=== PATIENT | male | born 1965 | race Two or more races ===

== ENCOUNTER 2016-11-24 08:30 | Inpatient (IN) | payer OTHER ==
[~2016-11-24] VITALS: Ht 170.2 cm; Wt 84.4 kg
[2016-11-24] VITALS (8 sets, daily range): BP systolic 107–123; BP diastolic 69–77
[2016-11-24] MEDS ORDERED: MORPHINE SULFATE 10 MG/ML VIAL. ONE ×2 (08:33→08:46)
[2016-11-24] MEDS ORDERED: CEFAZOLIN 1GM IVPB FOR OMNI 50 ML IV ONE ×2 (08:45→09:00)
[2016-11-24] MEDS ORDERED: MORPHINE SULFATE 4 MG/ML DISP.SYRIN. IV/SQ PRN (09:00)
[2016-11-24] MEDS ORDERED: MORPHINE SULFATE 10 MG/ML VIAL. IV ONE ×3 (09:00→09:30)
[2016-11-24 09:03] LABS: BASO # 0.1 x10^3/uL (0.0-0.2); BASO % 1 % (0-3); EOS % 4 % (0-3); HEMATOCRIT 42.3 % (39.0-53.0); HEMOGLOBIN 14.5 g/dL (13.0-17.5); LYMPH # 3.5 x10^3/uL (1.0-4.8); LYMPH % 32 % (24-48); MEAN CORPUSCULAR HEMOGLOBIN 30 pg (25-35); MEAN CORPUSCULAR HGB CONC 34 g/dL (31-37); MEAN CORPUSCULAR VOLUME 88 fL (79-100); MONO % 7 % (0-9); NEUT % 57 % (31-73); PLATELET COUNT 184 x10^3/uL (140-400); RED BLOOD COUNT 4.83 x10^6/uL (4.30-5.70); RED CELL DISTRIBUTION WIDTH 12.6 % (11.5-14.5); WHITE BLOOD COUNT 11.1 x10^3/uL (4.0-11.0)
[2016-11-24] MEDS ORDERED: LIDOCAINE 1% / SOD BICARB 8.4% 20 ML VIAL. IJ ONE (09:04)
[2016-11-24 09:08] LABS: CALCIUM 9.5 mg/dL (8.5-10.1); GFR 79.1; POTASSIUM 3.4 mmol/L (3.5-5.1)
--- NOTE | 2016-11-24 09:12 | RAD ---
INDICATION: crush injury COMPARISON: None IMPRESSION: Left lower le views obtained. There is a comminuted fracture of the left proximal tibia with displacement. Degenerative changes of the knee.
[2016-11-24 09:13] LABS: ALBUMIN 3.5 g/dL (3.4-5.0); ALBUMIN/GLOBULIN RATIO 0.8 (1.0-1.7); TOTAL BILIRUBIN 0.4 mg/dL (0.2-1.0); TOTAL PROTEIN 7.7 g/dL (6.4-8.2)
[2016-11-24 09:14] LABS: PROTHROMBIN TIME PATIENT 12.2 SEC (11.7-14.0)
[2016-11-24 09:27] LABS: BILIRUBIN,URINE NEGATIVE (NEG); GLUCOSE,URINE NEGATIVE (NEG); NITRITE,URINE NEGATIVE (NEG); PH,URINE 7.5; PROTEIN,URINE NEGATIVE (NEG-TRACE); UROBILINOGEN,URINE 0.2 mg/dL (0.2 mg/dL)
[2016-11-24 09:34] LABS: BARBITURATES NEG (NEG); BENZODIAZEPINES NEG (NEG); CANNABINOIDS NEG (NEG); COCAINE NEG (NEG); METHADONE NEG (NEG); OPIATES POS (NEG); PHENCYCLIDINE NEG (NEG)
[2016-11-24 09:36] LABS: ETHANOL, URINE NEG (NEG)
[2016-11-24] MEDS: IV RINGERS,LACTATED 1000ML 1,000 ML IV SCH ×2 (09:38→14:30)
[2016-11-24] MEDS ORDERED: HYDROMORPHONE 2 MG/ML VIAL. IV PRN (09:45)
[2016-11-24] MEDS ORDERED: PROCHLORPERAZINE 10 MG/2 ML VIAL. IV PRN (09:45)
[2016-11-24] MEDS ORDERED: MORPHINE SULFATE 2 MG/ML DISP.SYRIN. IV PRN ×2 (09:45→13:30)
[2016-11-24] MEDS ORDERED: FENTANYL PF 100 MCG/2 ML VIAL. IV PRN ×2 (09:45→13:30)
[2016-11-24] MEDS ORDERED: LIDOCAINE 1% 1 ML SYRINGE. ID PRN (09:45)
[2016-11-24] MEDS ORDERED: ONDANSETRON PF 4 MG/2 ML VIAL. IV PRN ×2 (09:45→13:30)
[2016-11-24] MEDS ORDERED: BUPIVACAINE-EPI 0.25%-1:200000 50 ML VIAL. ONE (09:50)
[2016-11-24 09:53] LABS: BACTERIA,URINE FEW /HPF (0-FEW); SQUAMOUS EPITHELIAL CELL,UR OCC /LPF
[2016-11-24] MEDS ORDERED: PROPOFOL 20 ML IV ONE (09:56)
[2016-11-24] MEDS ORDERED: ONDANSETRON PF 4 MG/2 ML VIAL. ONE (09:57)
[2016-11-24] MEDS ORDERED: DESFLURANE > 120 MINUTES IH ONE (09:57)
[2016-11-24] MEDS ORDERED: LIDOCAINE 2% 100 MG/5 ML DISP.SYRIN. ONE (09:57)
[2016-11-24] MEDS ORDERED: DEXAMETHASONE SOD PHOS 20 MG/5 ML VIAL. ONE (09:57)
[2016-11-24] MEDS ORDERED: SUCCINYLCHOLINE 200 MG/10 ML VIAL. ONE (09:57)
[2016-11-24] MEDS ORDERED: MIDAZOLAM HCL 2 MG/2 ML VIAL. ONE (09:59)
[2016-11-24] MEDS ORDERED: FENTANYL PF 100 MCG/2 ML VIAL. ONE ×2 (10:00→12:18)
--- NOTE | 2016-11-24 10:34 | PHYS DOC ---
Adult General Chief Complaint Chief Complaint: TRAUMA ACTIVATION HPI HPI Patient is a 51 year old male brought by ambulance from work after an injury. The patient was standing next to a concrete foundation when a rack loader backed into him, pinning his left leg between the rack loader and the concrete foundation. He was brought by ambulance. He was wearing multiple layers of clothes and working out in the cold when this occurred. He is healthy without chronic medical problems. No known allergies. Pain is 10 out of 10. Review of Systems Review of Systems Constitutional: Denies fever or chills [] Eyes: Denies change in visual acuity, redness, or eye pain [] HENT: Denies nasal congestion or sore throat [] Respiratory: Denies cough or shortness of breath [] Cardiovascular: Denies chest pain GI: Denies abdominal pain, nausea, vomiting, bloody stools or diarrhea [] : Denies dysuria or hematuria [] Musculoskeletal: As in history of present illness Integument: Denies rash or skin lesions [] Neurologic: Denies headache, focal weakness or sensory changes [] Current Medications Current Medications Current Medications Medications (Trade) Dose Ordered Sig/Ruby Start Time Stop Time Status Last Admin Dose Admin Bupivacaine HCl/ Epinephrine Bitart 50 ml 50 ml STK-MED ONCE 11/24/16 09:50 11/24/16 09:51 DC 11/24/16 10:32 50 ML Cefazolin Sodium (Ancef 1gm Ivpb For Omni) 50 ml @ 100 mls/hr 1X ONCE 11/24/16 09:00 11/24/16 09:37 DC 11/24/16 10:23 100 MLS/HR Desflurane (Suprane) 90 ml STK-MED ONCE 11/24/16 09:57 11/24/16 09:58 DC Dexamethasone Sodium Phosphate (Decadron) 20 mg STK-MED ONCE 11/24/16 09:57 11/24/16 09:58 DC Fentanyl Citrate (Fentanyl 2ml Vial) 100 mcg STK-MED ONCE 11/24/16 10:00 11/24/16 10:01 DC Hydromorphone HCl (Dilaudid) 0.5 mg PRN Q10MIN PRN 11/24/16 09:45 11/25/16 09:44 Lactated Ringer's (Iv Lactated Ringers) 1,000 ml @ 30 mls/hr Q24H 11/24/16 09:38 11/24/16 21:37 11/24/16 14:30 30 MLS/HR Lidocaine HCl 100 mg STK-MED ONCE 11/24/16 09:57 11/24/16 09:58 DC Lidocaine/Sodium Bicarbonate (Buffered Lidocaine 1%) 20 ml STK-MED ONCE 11/24/16 09:04 11/24/16 09:05 DC Midazolam HCl (Versed) 2 mg STK-MED ONCE 11/24/16 09:59 11/24/16 10:00 DC Morphine Sulfate 1 mg 1 mg PRN Q10MIN PRN 11/24/16 09:45 11/25/16 09:44 Morphine Sulfate 10 mg 10 mg 1X ONCE 11/24/16 09:00 11/24/16 09:37 DC Ondansetron HCl (Zofran) 4 mg STK-MED ONCE 11/24/16 09:57 11/24/16 09:58 DC Prochlorperazine Edisylate (Compazine) 5 mg PACU PRN PRN 11/24/16 09:45 11/25/16 09:44 Propofol (Diprivan) 20 ml @ As Directed STK-MED ONCE 11/24/16 09:56 11/24/16 09:57 DC Succinylcholine Chloride (Anectine) 200 mg STK-MED ONCE 11/24/16 09:57 11/24/16 09:58 DC Allergies Allergies Physical Exam Physical Exam Constitutional: Well developed, well nourished, alert, mentating normally, obvious left below the knee injury, vital signs stable HENT: Normocephalic, atraumatic, bilateral external ears normal, oropharynx moist, no oral exudates, nose normal. [] Eyes: conjunctiva normal, no discharge. [] Neck: Normal range of motion, no stridor. [] Cardiovascular:Heart rate regular rhythm, no murmur [] Lungs & Thorax: Bilateral breath sounds clear to auscultation [] Abdomen: Bowel sounds normal, soft, no tenderness, no masses, no pulsatile masses. [] Skin: Warm, dry, no erythema, no rash. [] Extremities: Upper extremities not injured. Right lower extremity has about a 1 cm laceration without underlying bony tenderness or deformity over the middle of the anterior lower leg. Left lower extremity has an obvious deformity, obvious crush injury, approximate 2 cm puncture type open wound that is bleeding slowly over the anterior aspect of the leg below the knee. Foot is warm with good color and good DP pulse. Neurologic: Alert and oriented X 3, normal motor function, normal sensory function, no focal deficits noted. [] Current Patient Data Vital Signs Vital Signs Date Time Temp Pulse Resp B/P Pulse Ox O2 Delivery O2 Flow Rate FiO2 11/24/16 10:08 98.4 79 15 141/86 97 Nasal Cannula 2 98.4 Lab Values Laboratory Tests Test 11/24/16 08:40 11/24/16 09:15 White Blood Count 11.1x10^3/uL (4.0-11.0) H Red Blood Count 4.83x10^6/uL (4.30-5.70) Hemoglobin 14.5g/dL (13.0-17.5) Hematocrit 42.3% (39.0-53.0) Mean Corpuscular Volume 88fL (79-100) Mean Corpuscular Hemoglobin 30pg (25-35) Mean Corpuscular Hemoglobin Concent 34g/dL (31-37) Red Cell Distribution Width 12.6% (11.5-14.5) Platelet Count 184x10^3/uL (140-400) Neutrophils (%) (Auto) 57% (31-73) Lymphocytes (%) (Auto) 32% (24-48) Monocytes (%) (Auto) 7% (0-9) Eosinophils (%) (Auto) 4% (0-3) H Basophils (%) (Auto) 1% (0-3) Neutrophils # (Auto) 6.3x10^3uL (1.8-7.7) Lymphocytes # (Auto) 3.5x10^3/uL (1.0-4.8) Monocytes # (Auto) 0.8x10^3/uL (0.0-1.1) Eosinophils # (Auto) 0.5x10^3/uL (0.0-0.7) Basophils # (Auto) 0.1x10^3/uL (0.0-0.2) Prothrombin Time 12.2SEC (11.7-14.0) Prothrombin Time INR 1.0 (0.8-1.1) PTT 27SEC (24-38) Sodium Level 141mmol/L (136-145) Potassium Level 3.4mmol/L (3.5-5.1) L Chloride Level 103mmol/L (98-107) Carbon Dioxide Level 24mmol/L (21-32) Anion Gap 14 (6-14) Blood Urea Nitrogen 19mg/dL (8-26) Creatinine 1.0mg/dL (0.7-1.3) Estimated GFR (Cockcroft-Gault) 79.1 BUN/Creatinine Ratio 19 (6-20) Glucose Level 169mg/dL (70-99) H Calcium Level 9.5mg/dL (8.5-10.1) Total Bilirubin 0.4mg/dL (0.2-1.0) Aspartate Amino Transferase (AST) 19U/L (15-37) Alanine Aminotransferase (ALT) 16U/L (16-63) Alkaline Phosphatase 79U/L (46-116) Total Protein 7.7g/dL (6.4-8.2) Albumin 3.5g/dL (3.4-5.0) Albumin/Globulin Ratio 0.8 (1.0-1.7) L Ethyl Alcohol Level < 10mg/dL (0-10) Urine Collection Type Unknown Urine Color Yellow Urine Clarity Cloudy Urine pH 7.5 Urine Specific [place] 1.015 Urine Protein Negativemg/dL (NEG-TRACE) Urine Glucose (UA) Negativemg/dL (NEG) Urine Ketones (Stick) Tracemg/dL (NEG) Urine Blood Negative (NEG) Urine Nitrite Negative (NEG) Urine Bilirubin Negative (NEG) Urine Urobilinogen Dipstick 0.2mg/dL (0.2 mg/dL) Urine Leukocyte Esterase Negative (NEG) Urine RBC 1-2/HPF (0-2) Urine WBC 1-4/HPF (0-4) Urine Squamous Epithelial Cells Occ/LPF Urine Amorphous Sediment Present/HPF Urine Bacteria Few/HPF (0-FEW) Urine Mucus Mod/LPF Urine Opiates Screen Pos (NEG) Urine Methadone Screen Neg (NEG) Urine Barbiturates Neg (NEG) Urine Phencyclidine Screen Neg (NEG) Urine Amphetamine/Methamphetamine Neg (NEG) Urine Benzodiazepines Screen Neg (NEG) Urine Cocaine Screen Neg (NEG) Urine Cannabinoids Screen Neg (NEG) Urine Ethyl Alcohol Neg (NEG) Laboratory Tests 11/24/16 08:40 Laboratory Tests 11/24/16 08:40 EKG EKG [] Radiology/Procedures Radiology/Procedures X-rays of the left tib-fib reviewed by me, comminuted fracture of the tibia. [] Procedure: Left long leg splint by me 4 x 4's were placed and wrapped with Kerlix over the open wound below the left knee. The left leg was wrapped with soft roll. A 5 inch OCL was used to place a posterior long-leg splint for stabilization and wrapped with an Luis wrap. The patient was medicated with IV morphine for the procedure and tolerated the procedure well. Postprocedure neurovascular intact and alignment good. Course & Med Decision Making Course & Med Decision Making Pertinent Labs and Imaging studies reviewed. (See chart for details) This patient was a trauma team activation for open long bone fracture with concern for vascular compromise. This patient is [place]-speaking. Bedside translation was provided by a friend who came in with him and speaks both languages well as well as a ED RN who speaks both languages well. 51-year-old male presents after a crush injury with obvious fracture and deformity of his left leg below the knee. Patient was given a tetanus shot and IV Ancef. He had had prehospital pain medications but arrived with 10 out of 10 pain, he was given multiple IV doses of morphine until his pain was well controlled in the emergency department. He was assessed without evidence of other serious injury. After his pain was stabilized, a long leg splint was placed by me with assistance from nursing staff. See procedure note. I discussed the case with Dr. Trujillo, orthopedics, who is on his way to the hospital to take the patient to the operating room. The patient was informed of this plan and is agreeable. Discussed the case with Dr. Perry, special care hospital medicine, who will admit the patient. I wrote bridge orders. [] Dragon Disclaimer Dragon Disclaimer This electronic medical record was generated, in whole or in part, using a voice recognition dictation system. Departure Departure Impression: Primary Impression: Open fracture of left tibia Disposition: ADMITTED INPATIENT Admitting Physician: Other Condition: STABLE Referrals: NO PCP (PCP) CARLO MOON MD Nov 24, 2016 10:34
[2016-11-24] MEDS ORDERED: ESMOLOL 100 MG/10 ML VIAL. IV ONE (10:58)
[2016-11-24] MEDS: FENTANYL PF 100 MCG/2 ML VIAL. IV PRN ×2 (13:27→14:49)
[2016-11-24] MEDS ORDERED: HYDROCODONE/APAP 7.5/325MG TABLET. PO PRN (13:30)
[2016-11-24] MEDS ORDERED: OXYCODONE IR 5 MG TABLET. PO PRN (13:30)
[2016-11-24] MEDS ORDERED: POLYETHYLENE GLYCOL 3350 17 GM PACKET. PO PRN (13:30)
[2016-11-24] MEDS ORDERED: DEXTROSE 50% 25 GM / 50ML DISP.SYRIN. IV PRN (13:30)
--- NOTE | 2016-11-24 13:30 | PDOC4 ---
Operative Note Operative Note Date of Procedure: November 24, 2016 Pre-Op Diagnosis: Displaced segmental fracture of shaft of left tibia, initial encounter for open fracture type II Right leg laceration 2 cm Post-Op Diagnosis: Displaced segmental fracture of shaft of left tibia, initial encounter for open fracture type II Ruptured tibialis anterior muscle and tendon, anterior compartment left leg Right leg laceration 2 cm Procedure: Open treatment of left segmental tibial shaft fracture with intramedullary implant Irrigation and debridement for open fracture of the left tibia including skin, subcutaneous tissue, fascia, muscle, and bone Suture repair of tibialis anterior muscle and tendon (extensor tendon) left leg Repair right leg laceration 2 cm Surgeon: Hilario Trujillo MD Roofer: Juani Mckeon PA-C Anesthesia: General EBL: 350 mL Specimens Obtained: none Complications: none Drains: none Indications for Procedure: The patient is a 51-year-old man who was injured at work when his leg was trapped briefly between a [employer] style freight car loader and a concrete foundation. The emergency room examination showed an open fracture, and x-ray showed segmental displaced fracture. He had light touch sensation of the toes and intact pulse, but full active range of motion of the ankle was unable to be assessed when I saw him due to the placement of a splint. He did not seem to have any significant neurovascular compromise, nor compartment syndrome. The patient and I discussed the risks, benefits and alternatives of surgery. I recommended irrigation and debridement of the open fracture, and intramedullary nailing. I explained to him that likely I would need to use some additional plate fixation due to the proximal unstable fragment. I told him this fracture is more serious than a closed fracture and more serious than a nonsegmental fracture, and has higher risks of infection, nonunion, need for further surgeries, or other complications. We spoke about the risks of surgery such as infection, blood clots, need for hardware removal, bleeding, or other potential surgical or anesthetic complications. All his questions about surgery were answered and he desires to proceed. I also discussed with him suture repair of the right leg laceration. Procedure in Detail: The patient was identified in the preoperative holding area. The correct extremity was marked by me. The patient was taken to the operating room where general anesthesia was used. The patient was positioned supine on the operating table. Preoperative antibiotics were given intravenously. He had been given Ancef in the emergency room and a second gram was given immediately preoperatively. A tourniquet was placed on the upper thigh. A timeout procedure was performed. The right leg was prepped first with Betadine, and then copious irrigation was used with saline. Simple suture repair was performed with 2-0 nylon of the 2 cm laceration on the right leg. The left leg was now prepped with Betadine, in sterile fashion. Sterile drapes were applied. An impervious stockinette was used over the foot. The [place] interpulse furnace operator oil or gas was used, and copious irrigation was used over the lateral open wound. This was now able to be examined in more detail. The tourniquet was inflated. The laceration was 4 cm in length, primarily horizontal , and extended up onto the tibial tubercle with a segmental type laceration. I extended the open wound proximally and distally with a scalpel for 2 cm in each direction. I then was able to insert the Bob InterPulse furnace operator oil or gas into the open wound, and perform more adequate irrigation. Fragments of fascia and muscle were irrigated. Small fragments of bone were irrigated. I was able to do digital exploration and there was massive muscle stripping and apparent rupture of the tibialis anterior, as it was no longer palpable in its usual location along the anterolateral tibia. Several liters of saline were irrigated through the open wound. Next the anterior incision was made for placement of the intramedullary nail. I extended this incision further distally because of the planned need for a small plate on the upper fracture of the segmental fracture to prevent the typical malreduction that occurs in these very proximal fractures. Sharp dissection was used and Bovie electrocautery was used for hemostasis. The upper of the 2 segments mental fractures was now irrigated copiously with the [place] interpulse furnace operator oil or gas. Fracture hematoma was cleared with curettes rongeurs and irrigation. Fragments of bone were removed with the Renaldo that were had been devitalized by the open fracture. The fracture was now held reduced by Juani, and I used a tenaculum clamp and then a K wire for provisional fixation. I then placed a Bob 5 hole locking plate and placed unicortical locking screws for anatomic reduction of the upper of the 2 segmental fractures. I then proceeded with intramedullary nailing. A starting hole was planned using a wire, and the large image intensifier was used. I used the image intensifier throughout the procedure and interpreted all of the images myself intraoperatively. The guidewire was re-session several times to get adequate intramedullary alignment and a satisfactory starting place. Proximal reaming was now performed after the tourniquet had been released. A beaded intramedullary guidewire was now able to be advanced. I then reduced the lower of the 2 fractures and had Juani insert the intramedullary wire, and pass it beyond the distal of the 2 segmental fracture sites into the distal fragment. Despite intramedullary placement of the guidewire, and several attempts at reduction with the image intensifier, a satisfactory reduction of the more distal of the 2 fractures could not be obtained in the usual closed fashion. There seemed to be interposed muscle as well as severe fracture instability. There was also quite a bit of muscle stripping already, and I felt that the risks of further skin dissection at this point were minimal as the dissection had been performed by the trauma. I extended the midline incision slightly further distal, and was able to expose the more distal of the 2 segmental fractures. Again significant muscle stripping was noted, and it was clear at this point that the entire tibialis anterior muscle/tendon had been ruptured proximally and was now flipped distally, and was part of what was impeding the fracture reduction. The tibialis anterior muscle and tendon was now reflected proximally into its anatomic position. The distal of the 2 fractures was able to be held reduced. I placed a provisional 5 hole locking plate with unicortical screws for provisional fixation and reduction. I then had Juani do the intramedullary reaming. The tourniquet was released earlier, prior to the proximal fragment entry reaming. We reamed by 0.5 mm increments up to 11.5 mm and then chose the 10 mm nail. Length had been measured using the intramedullary wire. A 10 x 330 mm nail was chosen. The intramedullary implant was now placed over the guidewire without difficulty and a nice secure anatomic reduction was obtained. Images in AP and lateral planes showed satisfactory provisional fixation. Proximal locking was performed next. Only 2 of the 3 proximal screws could be applied due to the plate fixation. I felt that the plate gave more stability and was actually better fixation then removing the plate to apply a third proximal cross lock screw. Distal locking was now performed in a freehand technique. 2 static screws were placed. I then removed the second of the 2 fixation plates, on the distal of the 2 segmental fractures , and found satisfactory reduction and fixation with the intramedullary nail. The more proximal of the 2 plates appear to be providing significant fixation strength and was not removed. Copious irrigation was used to final time. Outer gloves were changed. I then repaired the tibialis anterior muscle and tendon with #1 Vicryl sutures, into its anatomic position, overlying some of the open fracture site. Juani and Garrett closed the subcutaneous tissues with 2-0 Vicryl. She placed kadi in the skin. She injected local anesthetic Marcaine 0.25% with epinephrine. She placed a Prevena dressing and then a soft sterile dressing. There were no apparent complications. Needle and sponge counts were correct. HILARIO TRUJILLO MD Nov 24, 2016 13:30
--- NOTE | 2016-11-24 13:35 | PDOC2 ---
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 It was only for a few seconds. Open fracture was identified by the emergency room and he was admitted emergently. Tetanus and Ancef were given in the emergency room and a splint was applied. He complains of leg pain only on the left leg, as well as a right leg laceration. I asked if he wanted a formal food and beverage server and he did not, we had his coworker translate. Social History 1 pack per day Current Problem List Problem List Problems Medical Problems: (1) Displaced segmental fracture of shaft of left tibia, initial encounter for open fracture type I or II Status: Acute (2) Open fracture of left tibia Status: Acute Current Medications Current Medications Current Medications Morphine Sulfate 10 mg 10 mg STK-MED ONCE .ROUTE ; Start 11/24/16 at 08:33; Stop 11/24/16 at 08:34; Status DC Cefazolin Sodium (Ancef 1gm Ivpb For Omni) 50 ml @ As Directed STK-MED ONCE IV ; Start 11/24/16 at 08:45; Stop 11/24/16 at 08:46; Status DC Morphine Sulfate 10 mg STK-MED ONCE .ROUTE ; Start 11/24/16 at 08:46; Stop 11/24 at 08:47; Status DC Morphine Sulfate 4 mg PRN Q15MIN PRN IV/SQ PAIN GREATER THAN 3/10; Start at 09:00; Stop 11/25/16 at 08:59 Morphine Sulfate 10 mg 1X ONCE IV ; Start 11/24/16 at 09:00; Stop 11/24/16 at 09:37; Status DC Morphine Sulfate 10 mg 10 mg 1X ONCE IV ; Start 11/24/16 at 09:00; Stop at 09:37; Status DC Cefazolin Sodium (Ancef 1gm Ivpb For Omni) 50 ml @ 100 mls/hr 1X ONCE IV Last administered on 11/24/16t 10:23; Start 11/24/16 at 09:00; Stop 11/24/16 at 09:37; Status DC Lidocaine/Sodium Bicarbonate (Buffered Lidocaine 1%) 20 ml STK-MED ONCE IJ ; Start 11/24/16 at 09:04; Stop 11/24/16 at 09:05; Status DC Morphine Sulfate 10 mg 1X ONCE IV ; Start 11/24/16 at 09:30; Stop 11/24/16 at 09:37; Status DC Ondansetron HCl (Zofran) 4 mg PRN Q6HRS PRN IV Nausea; Start 11/24/16 at 09:45 ; Stop 11/25/16 at 09:44 Fentanyl Citrate (Fentanyl 2ml Vial) 25 mcg PRN Q5MIN PRN IV MILD PAIN; Start 11/24/16 at 09:45; Stop 11/25/16 at 09:44 Fentanyl Citrate (Fentanyl 2ml Vial) 50 mcg PRN Q5MIN PRN IV MODERATE PAIN Last administered on 11/24/16 13:27; Start 11/24/16 at 09:45; Stop 11/25/16 at 09:44 Morphine Sulfate 1 mg 1 mg PRN Q10MIN PRN IV SEVERE PAIN; Start 11/24/16 at 09: 45; Stop 11/25/16 at 09:44 Lactated Ringer's (Iv Lactated Ringers) 1,000 ml @ 30 mls/hr Q24H IV Last administered on 11/24/16 09:38; Start 11/24/16 at 09:38; Stop 11/24/16 at 21:37 Lidocaine HCl 2 ml 1X PRN PRN ID IV START; Start 11/24/16 at 09:45; Stop at 09:44 Hydromorphone HCl (Dilaudid) 0.5 mg PRN Q10MIN PRN IV SEV PAIN,Second choice; Start 11/24/16 at 09:45; Stop 11/25/16 at 09:44 Prochlorperazine Edisylate (Compazine) 5 mg PACU PRN PRN IV NAUSEA; Start 11/24 at 09:45; Stop 11/25/16 at 09:44 Bupivacaine HCl/ Epinephrine Bitart 50 ml 50 ml STK-MED ONCE .ROUTE Last administered on 11/24/16 10:32; Start 11/24/16 at 09:50; Stop 11/24/16 at 09:51 ; Status DC Propofol (Diprivan) 20 ml @ As Directed STK-MED ONCE IV ; Start 11/24/16 at 09: 56; Stop 11/24/16 at 09:57; Status DC Dexamethasone Sodium Phosphate (Decadron) 20 mg STK-MED ONCE .ROUTE ; Start at 09:57; Stop 11/24/16 at 09:58; Status DC Ondansetron HCl (Zofran) 4 mg STK-MED ONCE .ROUTE ; Start 11/24/16 at 09:57; Stop 11/24/16 at 09:58; Status DC Lidocaine HCl 100 mg STK-MED ONCE .ROUTE ; Start 11/24/16 at 09:57; Stop at 09:58; Status DC Desflurane (Suprane) 90 ml STK-MED ONCE IH ; Start 11/24/16 at 09:57; Stop 11/24 at 09:58; Status DC Succinylcholine Chloride (Anectine) 200 mg STK-MED ONCE .ROUTE ; Start 11/24/16 at 09:57; Stop 11/24/16 at 09:58; Status DC Midazolam HCl (Versed) 2 mg STK-MED ONCE .ROUTE ; Start 11/24/16 at 09:59; Stop 11/24/16 at 10:00; Status DC Fentanyl Citrate (Fentanyl 2ml Vial) 100 mcg STK-MED ONCE .ROUTE ; Start at 10:00; Stop 11/24/16 at 10:01; Status DC Esmolol HCl (Brevibloc) 100 mg STK-MED ONCE IV ; Start 11/24/16 at 10:58; Stop 11/24/16 at 10:59; Status DC Fentanyl Citrate (Fentanyl 2ml Vial) 100 mcg STK-MED ONCE .ROUTE ; Start at 12:18; Stop 11/24/16 at 12:19; Status DC Oxycodone HCl (Roxicodone) 5 mg PRN Q3HRS PRN PO PAIN; Start 11/24/16 at 13:30 Morphine Sulfate 2 mg PRN Q1HR PRN IV PAIN; Start 11/24/16 at 13:30 Fentanyl Citrate (Fentanyl 2ml Vial) 25 mcg PRN Q1HR PRN IV PAIN; Start at 13:30 Senna/Docusate Sodium (Senna Plus) 1 tab DAILY PO ; Start 11/25/16 at 09:00 Polyethylene Glycol (miraLAX PACKET) 17 gm PRN DAILY PRN PO CONSTIPATION; Start 11/24/16 at 13:30 Vitamin D (Vitamin D3) 1,000 unit DAILY PO ; Start 11/25/16 at 09:00 Ondansetron HCl (Zofran) 4 mg PRN Q4HRS PRN IV NAUSEA/VOMITING; Start 11/24/16 at 13:30 Aspirin (Yumiko Aspirin) 325 mg DAILYWBKFT PO ; Start 11/25/16 at 08:00 Magnesium Hydroxide (Milk Of Magnesia) 2,400 mg 1X PRN PRN PO CONSTIPATION; Start 11/25/16 at 06:00; Stop 11/26/16 at 05:59 Bisacodyl (Dulcolax Supp) 10 mg 1X PRN PRN ID CONSTIPATION; Start 11/25/16 at 16:00; Stop 11/26/16 at 15:59 Acetaminophen/ Hydrocodone Bitart (Lortab 7.5/325) 1 tab PRN Q4HRS PRN PO PAIN ; Start 11/24/16 at 13:30 Morphine Sulfate 4 mg PRN Q2HR PRN IV SEVERE PAIN; Start 11/24/16 at 13:30 Acetaminophen/ Hydrocodone Bitart (Lortab 7.5/325) 2 tab PRN Q4HRS PRN PO PAIN ; Start 11/24/16 at 13:30 Dextrose 12.5 gm 12.5 gm PRN Q15MIN PRN IV SEE COMMENTS; Start 11/24/16 at 13: 30 Cefazolin Sodium/ Dextrose (Ancef 2gm Premix) 50 ml @ 100 mls/hr Q6H IV ; Start 11/24/16 at 16:30; Stop 11/25/16 at 04:59 Allergies Allergies: Coded Allergies: No Known Drug Allergies (Unverified , 11/24/16) Physical Exam General: Alert, Oriented X3, Cooperative, Other (he appeared comfortable, he had received morphine) HEENT: Atraumatic Lungs: Normal air movement Heart: Regular rate Abdomen: Soft Extremities: Normal pulses, Other (splint on the left leg. He had sensation of the toes. He was able to move the toes minimally. Dorsalis pedis pulse was palpable. Capillary refill was normal.) Skin: Other (open fracture was examined intraoperatively and was 4 cm, with extensive underlying muscle stripping) Neuro: Normal speech Psych/Mental Status: Mental status NL Vitals VITALS Vital Signs Date Time Temp Pulse Resp B/P Pulse Ox O2 Delivery O2 Flow Rate FiO2 11/24/16 13:27 22 99 Simple Mask 11/24/16 10:08 98.4 79 141/86 2 98.4 Labs Labs Laboratory Tests Test 11/24/16 08:40 11/24/16 09:15 White Blood Count 11.1x10^3/uL (4.0-11.0) Red Blood Count 4.83x10^6/uL (4.30-5.70) Hemoglobin 14.5g/dL (13.0-17.5) Hematocrit 42.3% (39.0-53.0) Mean Corpuscular Volume 88fL (79-100) Mean Corpuscular Hemoglobin 30pg (25-35) Mean Corpuscular Hemoglobin Concent 34g/dL (31-37) Red Cell Distribution Width 12.6% (11.5-14.5) Platelet Count 184x10^3/uL (140-400) Neutrophils (%) (Auto) 57% (31-73) Lymphocytes (%) (Auto) 32% (24-48) Monocytes (%) (Auto) 7% (0-9) Eosinophils (%) (Auto) 4% (0-3) Basophils (%) (Auto) 1% (0-3) Neutrophils # (Auto) 6.3x10^3uL (1.8-7.7) Lymphocytes # (Auto) 3.5x10^3/uL (1.0-4.8) Monocytes # (Auto) 0.8x10^3/uL (0.0-1.1) Eosinophils # (Auto) 0.5x10^3/uL (0.0-0.7) Basophils # (Auto) 0.1x10^3/uL (0.0-0.2) Prothrombin Time 12.2SEC (11.7-14.0) Prothromb Time International Ratio 1.0 (0.8-1.1) Activated Partial Thromboplast Time 27SEC (24-38) Sodium Level 141mmol/L (136-145) Potassium Level 3.4mmol/L (3.5-5.1) Chloride Level 103mmol/L (98-107) Carbon Dioxide Level 24mmol/L (21-32) Anion Gap 14 (6-14) Blood Urea Nitrogen 19mg/dL (8-26) Creatinine 1.0mg/dL (0.7-1.3) Estimated GFR (Cockcroft-Gault) 79.1 BUN/Creatinine Ratio 19 (6-20) Glucose Level 169mg/dL (70-99) Calcium Level 9.5mg/dL (8.5-10.1) Total Bilirubin 0.4mg/dL (0.2-1.0) Aspartate Amino Transf (AST/SGOT) 19U/L (15-37) Alanine Aminotransferase (ALT/SGPT) 16U/L (16-63) Alkaline Phosphatase 79U/L (46-116) Total Protein 7.7g/dL (6.4-8.2) Albumin 3.5g/dL (3.4-5.0) Albumin/Globulin Ratio 0.8 (1.0-1.7) Ethyl Alcohol Level < 10mg/dL (0-10) Urine Collection Type Unknown Urine Color Yellow Urine Clarity Cloudy Urine pH 7.5 Urine Specific Nerinx 1.015 Urine Protein Negativemg/dL (NEG-TRACE) Urine Glucose (UA) Negativemg/dL (NEG) Urine Ketones (Stick) Tracemg/dL (NEG) Urine Blood Negative (NEG) Urine Nitrite Negative (NEG) Urine Bilirubin Negative (NEG) Urine Urobilinogen Dipstick 0.2mg/dL (0.2 mg/dL) Urine Leukocyte Esterase Negative (NEG) Urine RBC 1-2/HPF (0-2) Urine WBC 1-4/HPF (0-4) Urine Squamous Epithelial Cells Occ/LPF Urine Amorphous Sediment Present/HPF Urine Bacteria Few/HPF (0-FEW) Urine Mucus Mod/LPF Urine Opiates Screen Pos (NEG) Urine Methadone Screen Neg (NEG) Urine Barbiturates Neg (NEG) Urine Phencyclidine Screen Neg (NEG) Urine Amphetamine/Methamphetamine Neg (NEG) Urine Benzodiazepines Screen Neg (NEG) Urine Cocaine Screen Neg (NEG) Urine Cannabinoids Screen Neg (NEG) Urine Ethyl Alcohol Neg (NEG) Laboratory Tests Test 11/24/16 08:40 11/24/16 09:15 White Blood Count 11.1x10^3/uL (4.0-11.0) Red Blood Count 4.83x10^6/uL (4.30-5.70) Hemoglobin 14.5g/dL (13.0-17.5) Hematocrit 42.3% (39.0-53.0) Mean Corpuscular Volume 88fL (79-100) Mean Corpuscular Hemoglobin 30pg (25-35) Mean Corpuscular Hemoglobin Concent 34g/dL (31-37) Red Cell Distribution Width 12.6% (11.5-14.5) Platelet Count 184x10^3/uL (140-400) Neutrophils (%) (Auto) 57% (31-73) Lymphocytes (%) (Auto) 32% (24-48) Monocytes (%) (Auto) 7% (0-9) Eosinophils (%) (Auto) 4% (0-3) Basophils (%) (Auto) 1% (0-3) Neutrophils # (Auto) 6.3x10^3uL (1.8-7.7) Lymphocytes # (Auto) 3.5x10^3/uL (1.0-4.8) Monocytes # (Auto) 0.8x10^3/uL (0.0-1.1) Eosinophils # (Auto) 0.5x10^3/uL (0.0-0.7) Basophils # (Auto) 0.1x10^3/uL (0.0-0.2) Prothrombin Time 12.2SEC (11.7-14.0) Prothromb Time International Ratio 1.0 (0.8-1.1) Activated Partial Thromboplast Time 27SEC (24-38) Sodium Level 141mmol/L (136-145) Potassium Level 3.4mmol/L (3.5-5.1) Chloride Level 103mmol/L (98-107) Carbon Dioxide Level 24mmol/L (21-32) Anion Gap 14 (6-14) Blood Urea Nitrogen 19mg/dL (8-26) Creatinine 1.0mg/dL (0.7-1.3) Estimated GFR (Cockcroft-Gault) 79.1 BUN/Creatinine Ratio 19 (6-20) Glucose Level 169mg/dL (70-99) Calcium Level 9.5mg/dL (8.5-10.1) Total Bilirubin 0.4mg/dL (0.2-1.0) Aspartate Amino Transf (AST/SGOT) 19U/L (15-37) Alanine Aminotransferase (ALT/SGPT) 16U/L (16-63) Alkaline Phosphatase 79U/L (46-116) Total Protein 7.7g/dL (6.4-8.2) Albumin 3.5g/dL (3.4-5.0) Albumin/Globulin Ratio 0.8 (1.0-1.7) Ethyl Alcohol Level < 10mg/dL (0-10) Urine Collection Type Unknown Urine Color Yellow Urine Clarity Cloudy Urine pH 7.5 Urine Specific Nerinx 1.015 Urine Protein Negativemg/dL (NEG-TRACE) Urine Glucose (UA) Negativemg/dL (NEG) Urine Ketones (Stick) Tracemg/dL (NEG) Urine Blood Negative (NEG) Urine Nitrite Negative (NEG) Urine Bilirubin Negative (NEG) Urine Urobilinogen Dipstick 0.2mg/dL (0.2 mg/dL) Urine Leukocyte Esterase Negative (NEG) Urine RBC 1-2/HPF (0-2) Urine WBC 1-4/HPF (0-4) Urine Squamous Epithelial Cells Occ/LPF Urine Amorphous Sediment Present/HPF Urine Bacteria Few/HPF (0-FEW) Urine Mucus Mod/LPF Urine Opiates Screen Pos (NEG) Urine Methadone Screen Neg (NEG) Urine Barbiturates Neg (NEG) Urine Phencyclidine Screen Neg (NEG) Urine Amphetamine/Methamphetamine Neg (NEG) Urine Benzodiazepines Screen Neg (NEG) Urine Cocaine Screen Neg (NEG) Urine Cannabinoids Screen Neg (NEG) Urine Ethyl Alcohol Neg (NEG) Images Images X-rays and report reviewed. Segmental tibia fracture. Degenerative changes of the knee. Assessment/Plan Assessment/Plan Type II left open tibial fracture. Right leg laceration. I spoke to him about the risks and benefits of intermittent right fixation as well as irrigation and debridement for the open fracture. He agrees to proceed. I did explain that there are significant risks of nonunion, infection, or need for further surgeries. HILARIO WILKERSON MD Nov 24, 2016 13:35
[2016-11-24] MEDS: HYDROCODONE/APAP 7.5/325MG TABLET. PO PRN ×2 (17:44→22:06)
[2016-11-24] MEDS: CEFAZOLIN 2GM PREMIX 50 ML IV SCH ×2 (17:44→22:04)
[2016-11-24] MEDS ORDERED: FLU VACC QUAD 2016-17 (36MOS+)/PF 0.5 ML SYRINGE. VAX IM ONE (19:30)
--- NOTE | 2016-11-24 20:26 | ACF ---
Admission Forms Criteria MUSCULOSKELETAL DISEASE GRG Clinical Indications for Admission to Inpatient Care (Place 'X' for any and all applicable criteria): Hospital admission is needed for appropriate care of the patient because of ANY ONE of the following: [X]I. Fracture, dislocation, or other musculoskeletal injury requiring inpatient care(medical) as indicated by ANY ONE of the following(4)(5)(6)(7) [ ]a) Vertebral fracture requiring observation for instability or neurologic compromise (8) [ ]b) Compartment syndrome (proven or cannot be ruled out during observation level of care) (9) [ ]c) Limb-threatening injury [X]d) Major injury requiring inpatient stabilization such as traction initiation or external fixation before internal fixation or closure of complex or open fracture [X]e) Major injury requiring inpatient treatment after emergency or observation level care (as appropriate) [ ]f) Severe pain requiring acute inpatient management [ ]II. Newly diagnosed or suspected bone, joint, or orthopedic device infection (e.g., osteomyelitis, septic arthritis) needing ANY ONE of the following(1)(2)(3) [ ]a) IV antibiotics that cannot be initiated in other than inpatient setting (e.g., patient too unstable or home infusion not available) [ ]b) Device removal or replacement [ ]c) Bone or soft tissue debridement [ ]d) Joint drainage (drain placement or repetitive aspirations) [ ]III. Severe rheumatologic disease (e.g., systemic lupus erythematosus, rheumatoid arthritis) with complications or comorbidities (Also use Optimal Recovery Care Criteria or General Recovery Criteria as appropriate on the basis of predominant condition), including ANY ONE of the following(10 )(11)(12)(13) [ ]a) Severe infection (e.g., HAND EDGE BANDER infection, sepsis) (14) [ ]b) Respiratory complications, including ANY ONE of the following: [ ]i) Pleural effusion with respiratory compromise [ ]ii) Pulmonary hypertension with congestive failure [ ]iii) Respiratory failure [ ]iv) Pulmonary hemorrhage (15) [ ]c) Hematologic disease, including ANY ONE of the following: [ ]i) Coagulopathy with bleeding [ ]ii) Thrombosis with hypercoagulable state [ ]iii) Thrombotic thrombocytopenic purpura [ ]d) Cerebritis with seizures, psychosis, or other severe abnormalities [ ]e) Vertebral destruction with monitoring needed for cervical myelopathy& possible respiratory compromise [ ]f) Exacerbation that requires inpatient treatment (e.g., intravenous immunosuppression) (16) [ ]g) Acute renal failure [ ]IV. Severe vasculitis with complications or comorbidities (Also use Optimal Recovery Care Criteria or General Recovery Criteria as appropriate on the basis of predominant condition), including ANY ONE of the following(11)(12)(17)(18)(19)(20) [ ]a) HAND EDGE BANDER vasculitis with seizures, psychosis, or other severe abnormalities (22) [ ]b) Renal failure (16) [ ]c) Pulmonary hemorrhage (15) [ ]d) Cerebral infarction [ ]e) Gastrointestinal ischemia [ ]f) Gangrene or threatened amputation [ ]g) Exacerbation that requires inpatient treatment (e.g., intravenous immunosuppression) (19)(21) [ ]V. Severe myopathy as indicated by ANY ONE of the following (28)(29) [ ]a) New onset of airway compromise or inability to swallow [ ]b) Respiratory deterioration with observation needed for impending respiratory failure [ ]c) Exacerbation that requires inpatient treatment (e.g., intravenous immunosuppression) [ ]. Severe gout (crystal arthropathy) as indicated by ANY ONE of the following (23)(24) [ ]a) Severe pain requiring acute inpatient management [ ]b) Exacerbation that requires inpatient treatment (e.g., intravenous treatment) [ ]VII.Rhabdomyolysis and ANY ONE of the following (25)(26)(27) [ ]a) Acute renal failure [ ]b) Need for intravenous hydration after emergency or observation level care (as appropriate) [ ]c) Inability to maintain oral hydration [ ]d) Change in mental status [ ]e) Electrolyte abnormality that remains after emergency or observation level care (as appropriate) [ ]VIII Post amputation complication, as indicated by ANY ONE of the following [ ]a) Infection [ ]b) Dehiscence [ ]c) Myodesis failure [ ]IX. Severe pain requiring acute inpatient management as indicated by ALL of the following (30)(31)(32) [ ]a) Continuous or frequent (e.g., every 2 to 4 hrs) parenteral analgesics required [A] [ ]b) Rapid improvement expected from treatment or acute intervention ( e.g., surgery, anesthesia procedure[B] [ ]X. Musculoskeletal Disease and ALL of the following: [ ]a) Symptom or finding for which emergency and observation care have failed or are not considered appropriate (Use General Criteria: Observation Care as appropriate) [ ]b) Presence of ANY ONE of the following [ ]i) A General Admission Criteria [ ]ii) A Pediatric General Admission Criteria The original [facility] content created by [facility] has been revised. The portions of the content which have been revised are identified through the use of italic text or in bold, and [facility] has neither reviewed nor approved the modified material. All other unmodified content is copyright [facility]. Please see references footnoted in the original [facility] edition 2016 Admission Criteria Met?: Yes SYED ROSENBERG Nov 24, 2016 20:26
--- NOTE | 2016-11-25 00:49 | HP ---
ADMIT DATE: 11/24/2016 CHIEF COMPLAINT: Crush injury to left lower extremity. 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 He was immediately taken to the operating room by Dr. Trujillo and a crush tib-fib fracture was repaired on the left. He is now on the floor recovering. PAST MEDICAL HISTORY: Negative. FAMILY HISTORY: Diabetes in grandfather. SOCIAL HISTORY: Lives by himself. Smokes about half a pack a day. Denies any alcohol or drugs. ALLERGIES: No known drug allergies. HOME MEDICATIONS: None. REVIEW OF SYSTEMS: Pain fairly well controlled, although he is hesitant to move his lower extremity. He denies any other symptoms in rest of organ system review. PHYSICAL EXAMINATION: VITAL SIGNS: From today show blood pressure of 108/70, heart rate at 100, respiratory rate at 16. He is afebrile. GENERAL: This is a 51-year-old well-nourished, well-developed gentleman, alert and oriented, in no acute distress. HEENT: Shows no scleral icterus. NECK: Supple. LUNGS: Clear to auscultation. HEART: Regular rate and rhythm. ABDOMEN: Positive bowel sounds, soft and nontender. EXTREMITIES: Show no edema. Left lower extremity is wrapped in Luis bandage and gauze. A wound VAC just below the tibia is visible, draining serosanguineous fluid. He is able to move his toes. Sensation is intact. LABORATORY DATA: CBC from today shows WBC of 11.1, hemoglobin 14.5, platelets of 184. Chemistries with BUN and creatinine of 19 and 1. Potassium at 3.4. Rest of electrolytes within normal limits. LFTs normal. Urine negative for signs of infection. Toxicology is positive for opiates, but the patient received narcotics before urine was obtained. IMAGING STUDIES: Tib-fib x-ray showed comminuted fracture of the left proximal tibia with displacement as well as degenerative changes in the knee. ASSESSMENT AND PLAN: The patient is a 51-year-old gentleman who has sustained a traumatic tib fracture on the left, now status post natacha repair by Dr. Trujillo. He is recovering appropriately. Pain regimen will be instituted with IV as well as p.o. medications. I advised him that he should request pain medication to be able to move. He currently seems to be perfectly stable otherwise and no medications for blood pressure, etc, are indicated. A nicotine patch was offered to him given his history of smoker, but he declines at this point. Prophylaxis will be instituted with Lovenox in the morning, approximately 12 hours after surgery. BELLE TURNER MD DR: MAGDALENE/nts JOB#: [id number] / [id number] ENRIQUE
[2016-11-25] MEDS: HYDROCODONE/APAP 7.5/325MG TABLET. PO PRN ×4 (02:45→20:47)
[2016-11-25 03:05] VITALS: BP 118/93
[2016-11-25] MEDS: CEFAZOLIN 2GM PREMIX 50 ML IV SCH (04:28)
[2016-11-25] MEDS ORDERED: MAGNESIUM HYDROXIDE 2,400 MG/30 ML ORAL.SUSP. PO PRN (06:00)
[2016-11-25 06:26] LABS: BASO % 0 % (0-3); EOS % 0 % (0-3); HEMATOCRIT 26.4 % (39.0-53.0); HEMOGLOBIN 8.8 g/dL (13.0-17.5); LYMPH # 1.5 x10^3/uL (1.0-4.8); LYMPH % 11 % (24-48); MEAN CORPUSCULAR HEMOGLOBIN 30 pg (25-35); MEAN CORPUSCULAR HGB CONC 33 g/dL (31-37); MEAN CORPUSCULAR VOLUME 91 fL (79-100); MONO % 9 % (0-9); NEUT % 80 % (31-73); PLATELET COUNT 123 x10^3/uL (140-400); RED BLOOD COUNT 2.91 x10^6/uL (4.30-5.70); RED CELL DISTRIBUTION WIDTH 12.7 % (11.5-14.5); WHITE BLOOD COUNT 13.9 x10^3/uL (4.0-11.0)
[2016-11-25 06:29] LABS: CALCIUM 8.1 mg/dL (8.5-10.1); CREATININE 1.1 mg/dL (0.7-1.3); GFR 70.9; POTASSIUM 4.4 mmol/L (3.5-5.1)
[2016-11-25 07:00] VITALS: BP 122/68
[2016-11-25] MEDS: SENNOSIDES/DOCUSATE 8.6/50MG TABLET. PO SCH (09:19)
[2016-11-25] MEDS: ASPIRIN 325 MG TABLET PO SCH (09:19)
[2016-11-25] MEDS: CHOLECALCIFEROL (VITAMIN D3) 1,000 UNIT TABLET PO SCH (09:19)
--- NOTE | 2016-11-25 09:32 | PDOC2 ---
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 Crush injury to leg from bobcat at work Already had surgical intervention with ortho, only complaint is surgical pain Past Medical History Past Medical History no pertinent hx Past Surgical History Past Surgical History: Other (tib fib repair) Family History Family History: Diabetes Social History 1 pack per day Current Problem List Problem List Problems Medical Problems: (1) Displaced segmental fracture of shaft of left tibia, initial encounter for open fracture type I or II Status: Acute (2) Open fracture of left tibia Status: Acute Current Medications Current Medications Current Medications Morphine Sulfate 10 mg 10 mg STK-MED ONCE .ROUTE ; Start 11/24/16 at 08:33; Stop 11/24/16 at 08:34; Status DC Cefazolin Sodium (Ancef 1gm Ivpb For Omni) 50 ml @ As Directed STK-MED ONCE IV ; Start 11/24/16 at 08:45; Stop 11/24/16 at 08:46; Status DC Morphine Sulfate 10 mg STK-MED ONCE .ROUTE ; Start 11/24/16 at 08:46; Stop 11/24 at 08:47; Status DC Morphine Sulfate 4 mg PRN Q15MIN PRN IV/SQ PAIN GREATER THAN 3/10; Start at 09:00; Stop 11/24/16 at 18:57; Status DC Morphine Sulfate 10 mg 1X ONCE IV ; Start 11/24/16 at 09:00; Stop 11/24/16 at 09:37; Status DC Morphine Sulfate 10 mg 10 mg 1X ONCE IV ; Start 11/24/16 at 09:00; Stop at 09:37; Status DC Cefazolin Sodium (Ancef 1gm Ivpb For Omni) 50 ml @ 100 mls/hr 1X ONCE IV Last administered on 11/24/16t 10:23; Start 11/24/16 at 09:00; Stop 11/24/16 at 09:37; Status DC Lidocaine/Sodium Bicarbonate (Buffered Lidocaine 1%) 20 ml STK-MED ONCE IJ ; Start 11/24/16 at 09:04; Stop 11/24/16 at 09:05; Status DC Morphine Sulfate 10 mg 1X ONCE IV ; Start 11/24/16 at 09:30; Stop 11/24/16 at 09:37; Status DC Ondansetron HCl (Zofran) 4 mg PRN Q6HRS PRN IV Nausea; Start 11/24/16 at 09:45 ; Stop 11/25/16 at 09:44 Fentanyl Citrate (Fentanyl 2ml Vial) 25 mcg PRN Q5MIN PRN IV MILD PAIN; Start 11/24/16 at 09:45; Stop 11/24/16 at 18:57; Status DC Fentanyl Citrate (Fentanyl 2ml Vial) 50 mcg PRN Q5MIN PRN IV MODERATE PAIN Last administered on 11/24/16 14:49; Start 11/24/16 at 09:45; Stop 11/24/16 at 18:57; Status DC Morphine Sulfate 1 mg 1 mg PRN Q10MIN PRN IV SEVERE PAIN; Start 11/24/16 at 09: 45; Stop 11/24/16 at 18:57; Status DC Lactated Ringer's (Iv Lactated Ringers) 1,000 ml @ 30 mls/hr Q24H IV Last administered on 11/24/16 14:30; Start 11/24/16 at 09:38; Stop 11/24/16 at 21:37 ; Status DC Lidocaine HCl 2 ml 1X PRN PRN ID IV START; Start 11/24/16 at 09:45; Stop at 09:44 Hydromorphone HCl (Dilaudid) 0.5 mg PRN Q10MIN PRN IV SEV PAIN,Second choice; Start 11/24/16 at 09:45; Stop 11/25/16 at 09:44 Prochlorperazine Edisylate (Compazine) 5 mg PACU PRN PRN IV NAUSEA; Start 11/24 at 09:45; Stop 11/25/16 at 09:44 Bupivacaine HCl/ Epinephrine Bitart 50 ml 50 ml STK-MED ONCE .ROUTE Last administered on 11/24/16 10:32; Start 11/24/16 at 09:50; Stop 11/24/16 at 09:51 ; Status DC Propofol (Diprivan) 20 ml @ As Directed STK-MED ONCE IV ; Start 11/24/16 at 09: 56; Stop 11/24/16 at 09:57; Status DC Dexamethasone Sodium Phosphate (Decadron) 20 mg STK-MED ONCE .ROUTE ; Start at 09:57; Stop 11/24/16 at 09:58; Status DC Ondansetron HCl (Zofran) 4 mg STK-MED ONCE .ROUTE ; Start 11/24/16 at 09:57; Stop 11/24/16 at 09:58; Status DC Lidocaine HCl 100 mg STK-MED ONCE .ROUTE ; Start 11/24/16 at 09:57; Stop at 09:58; Status DC Desflurane (Suprane) 90 ml STK-MED ONCE IH ; Start 11/24/16 at 09:57; Stop 11/24 at 09:58; Status DC Succinylcholine Chloride (Anectine) 200 mg STK-MED ONCE .ROUTE ; Start 11/24/16 at 09:57; Stop 11/24/16 at 09:58; Status DC Midazolam HCl (Versed) 2 mg STK-MED ONCE .ROUTE ; Start 11/24/16 at 09:59; Stop 11/24/16 at 10:00; Status DC Fentanyl Citrate (Fentanyl 2ml Vial) 100 mcg STK-MED ONCE .ROUTE ; Start at 10:00; Stop 11/24/16 at 10:01; Status DC Esmolol HCl (Brevibloc) 100 mg STK-MED ONCE IV ; Start 11/24/16 at 10:58; Stop 11/24/16 at 10:59; Status DC Fentanyl Citrate (Fentanyl 2ml Vial) 100 mcg STK-MED ONCE .ROUTE ; Start at 12:18; Stop 11/24/16 at 12:19; Status DC Oxycodone HCl (Roxicodone) 5 mg PRN Q3HRS PRN PO PAIN; Start 11/24/16 at 13:30 Morphine Sulfate 2 mg PRN Q1HR PRN IV PAIN; Start 11/24/16 at 13:30 Fentanyl Citrate (Fentanyl 2ml Vial) 25 mcg PRN Q1HR PRN IV PAIN; Start at 13:30; Stop 11/24/16 at 18:57; Status DC Senna/Docusate Sodium (Senna Plus) 1 tab DAILY PO Last administered on 09:19; Start 11/25/16 at 09:00 Polyethylene Glycol (miraLAX PACKET) 17 gm PRN DAILY PRN PO CONSTIPATION; Start 11/24/16 at 13:30 Vitamin D (Vitamin D3) 1,000 unit DAILY PO Last administered on 11/25/16 09:19 ; Start 11/25/16 at 09:00 Ondansetron HCl (Zofran) 4 mg PRN Q4HRS PRN IV NAUSEA/VOMITING; Start 11/24/16 at 13:30 Aspirin (Yumiko Aspirin) 325 mg DAILYWBKFT PO Last administered on 11/25/16 09: 19; Start 11/25/16 at 08:00 Magnesium Hydroxide (Milk Of Magnesia) 2,400 mg 1X PRN PRN PO CONSTIPATION; Start 11/25/16 at 06:00; Stop 11/26/16 at 05:59 Bisacodyl (Dulcolax Supp) 10 mg 1X PRN PRN MT CONSTIPATION; Start 11/25/16 at 16:00; Stop 11/26/16 at 15:59 Acetaminophen/ Hydrocodone Bitart (Lortab 7.5/325) 1 tab PRN Q4HRS PRN PO PAIN ; Start 11/24/16 at 13:30 Morphine Sulfate 4 mg PRN Q2HR PRN IV SEVERE PAIN; Start 11/24/16 at 13:30 Acetaminophen/ Hydrocodone Bitart (Lortab 7.5/325) 2 tab PRN Q4HRS PRN PO PAIN Last administered on 11/25/16 09:20; Start 11/24/16 at 13:30 Dextrose 12.5 gm 12.5 gm PRN Q15MIN PRN IV SEE COMMENTS; Start 11/24/16 at 13: 30 Cefazolin Sodium/ Dextrose (Ancef 2gm Premix) 50 ml @ 100 mls/hr Q6H IV Last administered on 11/25/16 04:28; Start 11/24/16 at 16:30; Stop 11/25/16 at 04:59 ; Status DC Influenza Virus Vaccine Quadrival (Fluarix Quad [id number] Syringe) 0.5 ml ONCE ONCE VAX IM ; Start 11/24/16 at 19:30; Stop 11/24/16 at 19:31; Status DC Allergies Allergies: Coded Allergies: No Known Drug Allergies (Unverified , 11/24/16) ROS General: No: Chills, Other (fevers) PSYCHOLOGICAL ROS: No: Anxiety, Depression Eyes: No Blurry vision, No Double vision HEENT: No: Heacaches, Tinnitus Hematological and Lymphatic: No: Bleeding Problems, Blood Clots Respiratory: No: Cough, Shortness of breath Cardiovascular: No Chest Pain, No Palpitations Gastrointestinal: No Abdominal Pain, No Nausea, No Vomiting Genitourinary: No Dysuria, No Hematuria Musculoskeletal: Yes Other (see hpi) Neurological: No Confusion, No Headaches Physical Exam General: Alert, Oriented X3, Cooperative, No acute distress HEENT: PERRLA, Mucous membr. moist/pink Lungs: Clear to auscultation, Normal air movement Heart: Regular rate, Normal S1, Normal S2, No murmurs Abdomen: Normal bowel sounds, Soft, No tenderness, No hepatosplenomegaly Extremities: Other (left leg splint, drain in place) Neuro: Normal speech, Sensation intact Vitals VITALS Vital Signs Date Time Temp Pulse Resp B/P Pulse Ox O2 Delivery O2 Flow Rate FiO2 11/25/16 09:20 18 Room Air 11/25/16 07:00 97.5 87 122/68 96 97.5 11/25/16 03:45 2.0 Labs Labs Laboratory Tests Test 11/24/16 08:40 11/24/16 09:15 11/25/16 05:55 White Blood Count 11.1x10^3/uL (4.0-11.0) 13.9x10^3/uL (4.0-11.0) Red Blood Count 4.83x10^6/uL (4.30-5.70) 2.91x10^6/uL (4.30-5.70) Hemoglobin 14.5g/dL (13.0-17.5) 8.8g/dL (13.0-17.5) Hematocrit 42.3% (39.0-53.0) 26.4% (39.0-53.0) Mean Corpuscular Volume 88fL (79-100) 91fL (79-100) Mean Corpuscular Hemoglobin 30pg (25-35) 30pg (25-35) Mean Corpuscular Hemoglobin Concent 34g/dL (31-37) 33g/dL (31-37) Red Cell Distribution Width 12.6% (11.5-14.5) 12.7% (11.5-14.5) Platelet Count 184x10^3/uL (140-400) 123x10^3/uL (140-400) Neutrophils (%) (Auto) 57% (31-73) 80% (31-73) Lymphocytes (%) (Auto) 32% (24-48) 11% (24-48) Monocytes (%) (Auto) 7% (0-9) 9% (0-9) Eosinophils (%) (Auto) 4% (0-3) 0% (0-3) Basophils (%) (Auto) 1% (0-3) 0% (0-3) Neutrophils # (Auto) 6.3x10^3uL (1.8-7.7) 11.2x10^3uL (1.8-7.7) Lymphocytes # (Auto) 3.5x10^3/uL (1.0-4.8) 1.5x10^3/uL (1.0-4.8) Monocytes # (Auto) 0.8x10^3/uL (0.0-1.1) 1.2x10^3/uL (0.0-1.1) Eosinophils # (Auto) 0.5x10^3/uL (0.0-0.7) 0.0x10^3/uL (0.0-0.7) Basophils # (Auto) 0.1x10^3/uL (0.0-0.2) 0.0x10^3/uL (0.0-0.2) Prothrombin Time 12.2SEC (11.7-14.0) Prothromb Time International Ratio 1.0 (0.8-1.1) Activated Partial Thromboplast Time 27SEC (24-38) Sodium Level 141mmol/L (136-145) 141mmol/L (136-145) Potassium Level 3.4mmol/L (3.5-5.1) 4.4mmol/L (3.5-5.1) Chloride Level 103mmol/L (98-107) 107mmol/L (98-107) Carbon Dioxide Level 24mmol/L (21-32) 26mmol/L (21-32) Anion Gap 14 (6-14) 8 (6-14) Blood Urea Nitrogen 19mg/dL (8-26) 23mg/dL (8-26) Creatinine 1.0mg/dL (0.7-1.3) 1.1mg/dL (0.7-1.3) Estimated GFR (Cockcroft-Gault) 79.1 70.9 BUN/Creatinine Ratio 19 (6-20) Glucose Level 169mg/dL (70-99) 133mg/dL (70-99) Calcium Level 9.5mg/dL (8.5-10.1) 8.1mg/dL (8.5-10.1) Total Bilirubin 0.4mg/dL (0.2-1.0) Aspartate Amino Transf (AST/SGOT) 19U/L (15-37) Alanine Aminotransferase (ALT/SGPT) 16U/L (16-63) Alkaline Phosphatase 79U/L (46-116) Total Protein 7.7g/dL (6.4-8.2) Albumin 3.5g/dL (3.4-5.0) Albumin/Globulin Ratio 0.8 (1.0-1.7) 25-Hydroxy Vitamin D Total 24.3ng/mL (30.0-100.0) Ethyl Alcohol Level < 10mg/dL (0-10) Urine Collection Type Unknown Urine Color Yellow Urine Clarity Cloudy Urine pH 7.5 Urine Specific [place] 1.015 Urine Protein Negativemg/dL (NEG-TRACE) Urine Glucose (UA) Negativemg/dL (NEG) Urine Ketones (Stick) Tracemg/dL (NEG) Urine Blood Negative (NEG) Urine Nitrite Negative (NEG) Urine Bilirubin Negative (NEG) Urine Urobilinogen Dipstick 0.2mg/dL (0.2 mg/dL) Urine Leukocyte Esterase Negative (NEG) Urine RBC 1-2/HPF (0-2) Urine WBC 1-4/HPF (0-4) Urine Squamous Epithelial Cells Occ/LPF Urine Amorphous Sediment Present/HPF Urine Bacteria Few/HPF (0-FEW) Urine Mucus Mod/LPF Urine Opiates Screen Pos (NEG) Urine Methadone Screen Neg (NEG) Urine Barbiturates Neg (NEG) Urine Phencyclidine Screen Neg (NEG) Urine Amphetamine/Methamphetamine Neg (NEG) Urine Benzodiazepines Screen Neg (NEG) Urine Cocaine Screen Neg (NEG) Urine Cannabinoids Screen Neg (NEG) Urine Ethyl Alcohol Neg (NEG) Laboratory Tests Test 11/25/16 05:55 White Blood Count 13.9x10^3/uL (4.0-11.0) Red Blood Count 2.91x10^6/uL (4.30-5.70) Hemoglobin 8.8g/dL (13.0-17.5) Hematocrit 26.4% (39.0-53.0) Mean Corpuscular Volume 91fL (79-100) Mean Corpuscular Hemoglobin 30pg (25-35) Mean Corpuscular Hemoglobin Concent 33g/dL (31-37) Red Cell Distribution Width 12.7% (11.5-14.5) Platelet Count 123x10^3/uL (140-400) Neutrophils (%) (Auto) 80% (31-73) Lymphocytes (%) (Auto) 11% (24-48) Monocytes (%) (Auto) 9% (0-9) Eosinophils (%) (Auto) 0% (0-3) Basophils (%) (Auto) 0% (0-3) Neutrophils # (Auto) 11.2x10^3uL (1.8-7.7) Lymphocytes # (Auto) 1.5x10^3/uL (1.0-4.8) Monocytes # (Auto) 1.2x10^3/uL (0.0-1.1) Eosinophils # (Auto) 0.0x10^3/uL (0.0-0.7) Basophils # (Auto) 0.0x10^3/uL (0.0-0.2) Sodium Level 141mmol/L (136-145) Potassium Level 4.4mmol/L (3.5-5.1) Chloride Level 107mmol/L (98-107) Carbon Dioxide Level 26mmol/L (21-32) Anion Gap 8 (6-14) Blood Urea Nitrogen 23mg/dL (8-26) Creatinine 1.1mg/dL (0.7-1.3) Estimated GFR (Cockcroft-Gault) 70.9 Glucose Level 133mg/dL (70-99) Calcium Level 8.1mg/dL (8.5-10.1) Assessment/Plan Assessment/Plan trauma, tib fib fracture, underwent repair, crush injury no general surgery recs will sign off, please call with questions NICHOLAS MI MD 11/25/16 1005: CONSULT Allergies Allergies: Coded Allergies: No Known Drug Allergies (Unverified , 11/24/16) Assessment/Plan Assessment/Plan pt seen and examined agree with above no gen surg recs happy to see again if needed Thanks for consult FERN MUHAMMAD APRN Nov 25, 2016 09:31 NICHOLAS MI MD Nov 25, 2016 10:05
[2016-11-25 11:00] VITALS: BP 114/62
--- NOTE | 2016-11-25 12:02 | PDOC ---
PROGRESS NOTES Chief Complaint Chief Complaint Tibia fx L ASSESSMENT AND PLAN: 1. L tibia fx: s/p ORIF on 11-[address] Trujillo 2. B LE puncture wounds: 3. Pain control: PO and IV narcotics available 4. Prophylaxis: lovenox Vitals Vitals Vital Signs Date Time Temp Pulse Resp B/P Pulse Ox O2 Delivery O2 Flow Rate FiO2 11/25/16 10:30 18 Room Air 11/25/16 07:00 97.5 87 122/68 96 97.5 11/25/16 03:45 2.0 Physical Exam General: Alert, Oriented X3, Cooperative, No acute distress Heart: Regular rate, Normal S1, Normal S2, No murmurs Abdomen: Normal bowel sounds, Soft, No tenderness, No hepatosplenomegaly Extremities: Other (L leg in gauze/JAYASHREE wrap, wound vac on knee, no further drainage) Labs LABS Laboratory Tests Test 11/25/16 05:55 White Blood Count 13.9x10^3/uL (4.0-11.0) Red Blood Count 2.91x10^6/uL (4.30-5.70) Hemoglobin 8.8g/dL (13.0-17.5) Hematocrit 26.4% (39.0-53.0) Mean Corpuscular Volume 91fL (79-100) Mean Corpuscular Hemoglobin 30pg (25-35) Mean Corpuscular Hemoglobin Concent 33g/dL (31-37) Red Cell Distribution Width 12.7% (11.5-14.5) Platelet Count 123x10^3/uL (140-400) Neutrophils (%) (Auto) 80% (31-73) Lymphocytes (%) (Auto) 11% (24-48) Monocytes (%) (Auto) 9% (0-9) Eosinophils (%) (Auto) 0% (0-3) Basophils (%) (Auto) 0% (0-3) Neutrophils # (Auto) 11.2x10^3uL (1.8-7.7) Lymphocytes # (Auto) 1.5x10^3/uL (1.0-4.8) Monocytes # (Auto) 1.2x10^3/uL (0.0-1.1) Eosinophils # (Auto) 0.0x10^3/uL (0.0-0.7) Basophils # (Auto) 0.0x10^3/uL (0.0-0.2) Sodium Level 141mmol/L (136-145) Potassium Level 4.4mmol/L (3.5-5.1) Chloride Level 107mmol/L (98-107) Carbon Dioxide Level 26mmol/L (21-32) Anion Gap 8 (6-14) Blood Urea Nitrogen 23mg/dL (8-26) Creatinine 1.1mg/dL (0.7-1.3) Estimated GFR (Cockcroft-Gault) 70.9 Glucose Level 133mg/dL (70-99) Calcium Level 8.1mg/dL (8.5-10.1) Review of Systems Review of Systems pain 07/19 currently in knee. just got PO meds 3 min ago BELLE TURNER MD Nov 25, 2016 12:02
[2016-11-25 15:00] VITALS: BP 106/67
[2016-11-25] MEDS ORDERED: BISACODYL 10 MG SUPP.RECT PR PRN (16:00)
[2016-11-25 16:44] LABS: BASO % 0 % (0-3); EOS % 1 % (0-3); HEMATOCRIT 23.5 % (39.0-53.0); HEMOGLOBIN 7.8 g/dL (13.0-17.5); LYMPH # 2.3 x10^3/uL (1.0-4.8); LYMPH % 18 % (24-48); MEAN CORPUSCULAR HEMOGLOBIN 30 pg (25-35); MEAN CORPUSCULAR HGB CONC 33 g/dL (31-37); MEAN CORPUSCULAR VOLUME 91 fL (79-100); MONO % 10 % (0-9); NEUT % 70 % (31-73); PLATELET COUNT 108 x10^3/uL (140-400); RED BLOOD COUNT 2.59 x10^6/uL (4.30-5.70); RED CELL DISTRIBUTION WIDTH 12.8 % (11.5-14.5); WHITE BLOOD COUNT 12.6 x10^3/uL (4.0-11.0)
[2016-11-25 17:12] LABS: CALCIUM 7.8 mg/dL (8.5-10.1); GFR 79.1
[2016-11-25 19:00] VITALS: BP 144/77
[2016-11-25] MEDS: ENOXAPARIN 40 MG/0.4 ML DISP.SYRIN. SQ SCH (20:46)
[2016-11-25 23:00] VITALS: BP 109/56
[2016-11-26] VITALS (11 sets, daily range): BP systolic 99–118; BP diastolic 57–66
[2016-11-26] MEDS: HYDROCODONE/APAP 7.5/325MG TABLET. PO PRN ×6 (00:17→21:38)
[2016-11-26 06:15] LABS: CALCIUM 8.1 mg/dL (8.5-10.1); CREATININE 0.9 mg/dL (0.7-1.3); GFR 89.3; POTASSIUM 4.1 mmol/L (3.5-5.1)
[2016-11-26 06:19] LABS: BASO % 0 % (0-3); EOS % 2 % (0-3); LYMPH # 2.3 x10^3/uL (1.0-4.8); LYMPH % 24 % (24-48); MEAN CORPUSCULAR HEMOGLOBIN 30 pg (25-35); MEAN CORPUSCULAR HGB CONC 34 g/dL (31-37); MEAN CORPUSCULAR VOLUME 91 fL (79-100); MONO % 10 % (0-9); NEUT % 64 % (31-73); PLATELET COUNT 96 x10^3/uL (140-400); RED BLOOD COUNT 2.27 x10^6/uL (4.30-5.70); RED CELL DISTRIBUTION WIDTH 12.7 % (11.5-14.5); WHITE BLOOD COUNT 9.5 x10^3/uL (4.0-11.0)
[2016-11-26 06:26] LABS: HEMATOCRIT 20.6 % (39.0-53.0); HEMOGLOBIN 6.9 g/dL (13.0-17.5)
[2016-11-26] MEDS: ASPIRIN 325 MG TABLET PO SCH (08:12)
[2016-11-26] MEDS: POLYETHYLENE GLYCOL 3350 17 GM PACKET. PO SCH (08:12)
[2016-11-26] MEDS: SENNOSIDES/DOCUSATE 8.6/50MG TABLET. PO SCH (08:12)
[2016-11-26] MEDS: CHOLECALCIFEROL (VITAMIN D3) 1,000 UNIT TABLET PO SCH (08:12)
--- NOTE | 2016-11-26 09:01 | PDOC ---
PROGRESS NOTES Chief Complaint Chief Complaint Tibia fx L ASSESSMENT AND PLAN: 1. L tibia fx: s/p ORIF on 11-[address] Trujillo 2. B LE puncture wounds: healing appropriately 3. Pain control: not optimal yet. PO and IV narcotics available 4. Prophylaxis: lovenox Vitals Vitals Vital Signs Date Time Temp Pulse Resp B/P Pulse Ox O2 Delivery O2 Flow Rate FiO2 11/26/16 08:12 18 Room Air 11/26/16 07:00 96.9 85 109/66 98 96.9 11/26/16 00:17 2.0 Physical Exam General: Alert, Oriented X3, Cooperative, mild distress Heart: Regular rate, Normal S1, Normal S2, No murmurs Abdomen: Normal bowel sounds, Soft, No tenderness, No hepatosplenomegaly Extremities: Other (L leg in gauze/JAYASHREE wrap, wound vac on knee, turned off) Labs LABS Laboratory Tests Test 11/25/16 13:55 11/26/16 05:51 White Blood Count 12.6x10^3/uL (4.0-11.0) 9.5x10^3/uL (4.0-11.0) Red Blood Count 2.59x10^6/uL (4.30-5.70) 2.27x10^6/uL (4.30-5.70) Hemoglobin 7.8g/dL (13.0-17.5) 6.9g/dL (13.0-17.5) Hematocrit 23.5% (39.0-53.0) 20.6% (39.0-53.0) Mean Corpuscular Volume 91fL (79-100) 91fL (79-100) Mean Corpuscular Hemoglobin 30pg (25-35) 30pg (25-35) Mean Corpuscular Hemoglobin Concent 33g/dL (31-37) 34g/dL (31-37) Red Cell Distribution Width 12.8% (11.5-14.5) 12.7% (11.5-14.5) Platelet Count 108x10^3/uL (140-400) 96x10^3/uL (140-400) Neutrophils (%) (Auto) 70% (31-73) 64% (31-73) Lymphocytes (%) (Auto) 18% (24-48) 24% (24-48) Monocytes (%) (Auto) 10% (0-9) 10% (0-9) Eosinophils (%) (Auto) 1% (0-3) 2% (0-3) Basophils (%) (Auto) 0% (0-3) 0% (0-3) Neutrophils # (Auto) 8.8x10^3uL (1.8-7.7) 6.0x10^3uL (1.8-7.7) Lymphocytes # (Auto) 2.3x10^3/uL (1.0-4.8) 2.3x10^3/uL (1.0-4.8) Monocytes # (Auto) 1.3x10^3/uL (0.0-1.1) 0.9x10^3/uL (0.0-1.1) Eosinophils # (Auto) 0.1x10^3/uL (0.0-0.7) 0.2x10^3/uL (0.0-0.7) Basophils # (Auto) 0.0x10^3/uL (0.0-0.2) 0.0x10^3/uL (0.0-0.2) Sodium Level 139mmol/L (136-145) 142mmol/L (136-145) Potassium Level 4.0mmol/L (3.5-5.1) 4.1mmol/L (3.5-5.1) Chloride Level 104mmol/L (98-107) 107mmol/L (98-107) Carbon Dioxide Level 29mmol/L (21-32) 29mmol/L (21-32) Anion Gap 6 (6-14) 6 (6-14) Blood Urea Nitrogen 23mg/dL (8-26) 17mg/dL (8-26) Creatinine 1.0mg/dL (0.7-1.3) 0.9mg/dL (0.7-1.3) Estimated GFR (Cockcroft-Gault) 79.1 89.3 Glucose Level 129mg/dL (70-99) 101mg/dL (70-99) Calcium Level 7.8mg/dL (8.5-10.1) 8.1mg/dL (8.5-10.1) Review of Systems Review of Systems 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 no other c/o Comment Labs Laboratory Tests Test 11/24/16 09:15 11/25/16 05:55 11/25/16 13:55 11/26/16 05:51 Urine Collection Type Unknown Urine Color Yellow Urine Clarity Cloudy Urine pH 7.5 Urine Specific [place] 1.015 Urine Protein Negativemg/dL (NEG-TRACE) Urine Glucose (UA) Negativemg/dL (NEG) Urine Ketones (Stick) Tracemg/dL (NEG) Urine Blood Negative (NEG) Urine Nitrite Negative (NEG) Urine Bilirubin Negative (NEG) Urine Urobilinogen Dipstick 0.2mg/dL (0.2 mg/dL) Urine Leukocyte Esterase Negative (NEG) Urine RBC 1-2/HPF (0-2) Urine WBC 1-4/HPF (0-4) Urine Squamous Epithelial Cells Occ/LPF Urine Amorphous Sediment Present/HPF Urine Bacteria Few/HPF (0-FEW) Urine Mucus Mod/LPF Urine Opiates Screen Pos (NEG) Urine Methadone Screen Neg (NEG) Urine Barbiturates Neg (NEG) Urine Phencyclidine Screen Neg (NEG) Urine Amphetamine/Methamphetamine Neg (NEG) Urine Benzodiazepines Screen Neg (NEG) Urine Cocaine Screen Neg (NEG) Urine Cannabinoids Screen Neg (NEG) Urine Ethyl Alcohol Neg (NEG) White Blood Count 13.9x10^3/uL (4.0-11.0) 12.6x10^3/uL (4.0-11.0) 9.5x10^3/uL (4.0-11.0) Red Blood Count 2.91x10^6/uL (4.30-5.70) 2.59x10^6/uL (4.30-5.70) 2.27x10^6/uL (4.30-5.70) Hemoglobin 8.8g/dL (13.0-17.5) 7.8g/dL (13.0-17.5) 6.9g/dL (13.0-17.5) Hematocrit 26.4% (39.0-53.0) 23.5% (39.0-53.0) 20.6% (39.0-53.0) Mean Corpuscular Volume 91fL (79-100) 91fL (79-100) 91fL (79-100) Mean Corpuscular Hemoglobin 30pg (25-35) 30pg (25-35) 30pg (25-35) Mean Corpuscular Hemoglobin Concent 33g/dL (31-37) 33g/dL (31-37) 34g/dL (31-37) Red Cell Distribution Width 12.7% (11.5-14.5) 12.8% (11.5-14.5) 12.7% (11.5-14.5) Platelet Count 123x10^3/uL (140-400) 108x10^3/uL (140-400) 96x10^3/uL (140-400) Neutrophils (%) (Auto) 80% (31-73) 70% (31-73) 64% (31-73) Lymphocytes (%) (Auto) 11% (24-48) 18% (24-48) 24% (24-48) Monocytes (%) (Auto) 9% (0-9) 10% (0-9) 10% (0-9) Eosinophils (%) (Auto) 0% (0-3) 1% (0-3) 2% (0-3) Basophils (%) (Auto) 0% (0-3) 0% (0-3) 0% (0-3) Neutrophils # (Auto) 11.2x10^3uL (1.8-7.7) 8.8x10^3uL (1.8-7.7) 6.0x10^3uL (1.8-7.7) Lymphocytes # (Auto) 1.5x10^3/uL (1.0-4.8) 2.3x10^3/uL (1.0-4.8) 2.3x10^3/uL (1.0-4.8) Monocytes # (Auto) 1.2x10^3/uL (0.0-1.1) 1.3x10^3/uL (0.0-1.1) 0.9x10^3/uL (0.0-1.1) Eosinophils # (Auto) 0.0x10^3/uL (0.0-0.7) 0.1x10^3/uL (0.0-0.7) 0.2x10^3/uL (0.0-0.7) Basophils # (Auto) 0.0x10^3/uL (0.0-0.2) 0.0x10^3/uL (0.0-0.2) 0.0x10^3/uL (0.0-0.2) Sodium Level 141mmol/L (136-145) 139mmol/L (136-145) 142mmol/L (136-145) Potassium Level 4.4mmol/L (3.5-5.1) 4.0mmol/L (3.5-5.1) 4.1mmol/L (3.5-5.1) Chloride Level 107mmol/L (98-107) 104mmol/L (98-107) 107mmol/L (98-107) Carbon Dioxide Level 26mmol/L (21-32) 29mmol/L (21-32) 29mmol/L (21-32) Anion Gap 8 (6-14) 6 (6-14) 6 (6-14) Blood Urea Nitrogen 23mg/dL (8-26) 23mg/dL (8-26) 17mg/dL (8-26) Creatinine 1.1mg/dL (0.7-1.3) 1.0mg/dL (0.7-1.3) 0.9mg/dL (0.7-1.3) Estimated GFR (Cockcroft-Gault) 70.9 79.1 89.3 Glucose Level 133mg/dL (70-99) 129mg/dL (70-99) 101mg/dL (70-99) Calcium Level 8.1mg/dL (8.5-10.1) 7.8mg/dL (8.5-10.1) 8.1mg/dL (8.5-10.1) Laboratory Tests Test 11/25/16 13:55 11/26/16 05:51 White Blood Count 12.6x10^3/uL (4.0-11.0) 9.5x10^3/uL (4.0-11.0) Red Blood Count 2.59x10^6/uL (4.30-5.70) 2.27x10^6/uL (4.30-5.70) Hemoglobin 7.8g/dL (13.0-17.5) 6.9g/dL (13.0-17.5) Hematocrit 23.5% (39.0-53.0) 20.6% (39.0-53.0) Mean Corpuscular Volume 91fL (79-100) 91fL (79-100) Mean Corpuscular Hemoglobin 30pg (25-35) 30pg (25-35) Mean Corpuscular Hemoglobin Concent 33g/dL (31-37) 34g/dL (31-37) Red Cell Distribution Width 12.8% (11.5-14.5) 12.7% (11.5-14.5) Platelet Count 108x10^3/uL (140-400) 96x10^3/uL (140-400) Neutrophils (%) (Auto) 70% (31-73) 64% (31-73) Lymphocytes (%) (Auto) 18% (24-48) 24% (24-48) Monocytes (%) (Auto) 10% (0-9) 10% (0-9) Eosinophils (%) (Auto) 1% (0-3) 2% (0-3) Basophils (%) (Auto) 0% (0-3) 0% (0-3) Neutrophils # (Auto) 8.8x10^3uL (1.8-7.7) 6.0x10^3uL (1.8-7.7) Lymphocytes # (Auto) 2.3x10^3/uL (1.0-4.8) 2.3x10^3/uL (1.0-4.8) Monocytes # (Auto) 1.3x10^3/uL (0.0-1.1) 0.9x10^3/uL (0.0-1.1) Eosinophils # (Auto) 0.1x10^3/uL (0.0-0.7) 0.2x10^3/uL (0.0-0.7) Basophils # (Auto) 0.0x10^3/uL (0.0-0.2) 0.0x10^3/uL (0.0-0.2) Sodium Level 139mmol/L (136-145) 142mmol/L (136-145) Potassium Level 4.0mmol/L (3.5-5.1) 4.1mmol/L (3.5-5.1) Chloride Level 104mmol/L (98-107) 107mmol/L (98-107) Carbon Dioxide Level 29mmol/L (21-32) 29mmol/L (21-32) Anion Gap 6 (6-14) 6 (6-14) Blood Urea Nitrogen 23mg/dL (8-26) 17mg/dL (8-26) Creatinine 1.0mg/dL (0.7-1.3) 0.9mg/dL (0.7-1.3) Estimated GFR (Cockcroft-Gault) 79.1 89.3 Glucose Level 129mg/dL (70-99) 101mg/dL (70-99) Calcium Level 7.8mg/dL (8.5-10.1) 8.1mg/dL (8.5-10.1) Medications Current Medications Morphine Sulfate 10 mg 10 mg STK-MED ONCE .ROUTE ; Start 11/24/16 at 08:33; Stop 11/24/16 at 08:34; Status DC Cefazolin Sodium (Ancef 1gm Ivpb For Omni) 50 ml @ As Directed STK-MED ONCE IV ; Start 11/24/16 at 08:45; Stop 11/24/16 at 08:46; Status DC Morphine Sulfate 10 mg STK-MED ONCE .ROUTE ; Start 11/24/16 at 08:46; Stop 11/24 at 08:47; Status DC Morphine Sulfate 4 mg PRN Q15MIN PRN IV/SQ PAIN GREATER THAN 3/10; Start at 09:00; Stop 11/24/16 at 18:57; Status DC Morphine Sulfate 10 mg 1X ONCE IV ; Start 11/24/16 at 09:00; Stop 11/24/16 at 09:37; Status DC Morphine Sulfate 10 mg 10 mg 1X ONCE IV ; Start 11/24/16 at 09:00; Stop at 09:37; Status DC Cefazolin Sodium (Ancef 1gm Ivpb For Omni) 50 ml @ 100 mls/hr 1X ONCE IV Last administered on 11/24/16 10:23; Start 11/24/16 at 09:00; Stop 11/24/16 at 09:37; Status DC Lidocaine/Sodium Bicarbonate (Buffered Lidocaine 1%) 20 ml STK-MED ONCE IJ ; Start 11/24/16 at 09:04; Stop 11/24/16 at 09:05; Status DC Morphine Sulfate 10 mg 1X ONCE IV ; Start 11/24/16 at 09:30; Stop 11/24/16 at 09:37; Status DC Ondansetron HCl (Zofran) 4 mg PRN Q6HRS PRN IV Nausea; Start 11/24/16 at 09:45 ; Stop 11/25/16 at 09:44; Status DC Fentanyl Citrate (Fentanyl 2ml Vial) 25 mcg PRN Q5MIN PRN IV MILD PAIN; Start 11/24/16 at 09:45; Stop 11/24/16 at 18:57; Status DC Fentanyl Citrate (Fentanyl 2ml Vial) 50 mcg PRN Q5MIN PRN IV MODERATE PAIN Last administered on 11/24/16 14:49; Start 11/24/16 at 09:45; Stop 11/24/16 at 18:57; Status DC Morphine Sulfate 1 mg 1 mg PRN Q10MIN PRN IV SEVERE PAIN; Start 11/24/16 at 09: 45; Stop 11/24/16 at 18:57; Status DC Lactated Ringer's (Iv Lactated Ringers) 1,000 ml @ 30 mls/hr Q24H IV Last administered on 11/24/16 14:30; Start 11/24/16 at 09:38; Stop 11/24/16 at 21:37 ; Status DC Lidocaine HCl 2 ml 1X PRN PRN ID IV START; Start 11/24/16 at 09:45; Stop at 09:44; Status DC Hydromorphone HCl (Dilaudid) 0.5 mg PRN Q10MIN PRN IV SEV PAIN,Second choice; Start 11/24/16 at 09:45; Stop 11/25/16 at 09:44; Status DC Prochlorperazine Edisylate (Compazine) 5 mg PACU PRN PRN IV NAUSEA; Start 11/24 at 09:45; Stop 11/25/16 at 09:44; Status DC Bupivacaine HCl/ Epinephrine Bitart 50 ml 50 ml STK-MED ONCE .ROUTE Last administered on 11/24/16t 10:32; Start 11/24/16 at 09:50; Stop 11/24/16 at 09:51 ; Status DC Propofol (Diprivan) 20 ml @ As Directed STK-MED ONCE IV ; Start 11/24/16 at 09: 56; Stop 11/24/16 at 09:57; Status DC Dexamethasone Sodium Phosphate (Decadron) 20 mg STK-MED ONCE .ROUTE ; Start at 09:57; Stop 11/24/16 at 09:58; Status DC Ondansetron HCl (Zofran) 4 mg STK-MED ONCE .ROUTE ; Start 11/24/16 at 09:57; Stop 11/24/16 at 09:58; Status DC Lidocaine HCl 100 mg STK-MED ONCE .ROUTE ; Start 11/24/16 at 09:57; Stop at 09:58; Status DC Desflurane (Suprane) 90 ml STK-MED ONCE IH ; Start 11/24/16 at 09:57; Stop 11/24 at 09:58; Status DC Succinylcholine Chloride (Anectine) 200 mg STK-MED ONCE .ROUTE ; Start 11/24/16 at 09:57; Stop 11/24/16 at 09:58; Status DC Midazolam HCl (Versed) 2 mg STK-MED ONCE .ROUTE ; Start 11/24/16 at 09:59; Stop 11/24/16 at 10:00; Status DC Fentanyl Citrate (Fentanyl 2ml Vial) 100 mcg STK-MED ONCE .ROUTE ; Start at 10:00; Stop 11/24/16 at 10:01; Status DC Esmolol HCl (Brevibloc) 100 mg STK-MED ONCE IV ; Start 11/24/16 at 10:58; Stop 11/24/16 at 10:59; Status DC Fentanyl Citrate (Fentanyl 2ml Vial) 100 mcg STK-MED ONCE .ROUTE ; Start at 12:18; Stop 11/24/16 at 12:19; Status DC Oxycodone HCl (Roxicodone) 5 mg PRN Q3HRS PRN PO PAIN; Start 11/24/16 at 13:30 ; Stop 11/25/16 at 16:28; Status DC Morphine Sulfate 2 mg PRN Q1HR PRN IV PAIN; Start 11/24/16 at 13:30 Fentanyl Citrate (Fentanyl 2ml Vial) 25 mcg PRN Q1HR PRN IV PAIN; Start at 13:30; Stop 11/24/16 at 18:57; Status DC Senna/Docusate Sodium (Senna Plus) 1 tab DAILY PO Last administered on 08:12; Start 11/25/16 at 09:00 Polyethylene Glycol (miraLAX PACKET) 17 gm PRN DAILY PRN PO CONSTIPATION; Start 11/24/16 at 13:30 Vitamin D (Vitamin D3) 1,000 unit DAILY PO Last administered on 11/26/16 08:12 ; Start 11/25/16 at 09:00 Ondansetron HCl (Zofran) 4 mg PRN Q4HRS PRN IV NAUSEA/VOMITING; Start 11/24/16 at 13:30 Aspirin (Yumiko Aspirin) 325 mg DAILYWBKFT PO Last administered on 11/26/16 08: 12; Start 11/25/16 at 08:00 Magnesium Hydroxide (Milk Of Magnesia) 2,400 mg 1X PRN PRN PO CONSTIPATION; Start 11/25/16 at 06:00; Stop 11/26/16 at 05:59; Status DC Bisacodyl (Dulcolax Supp) 10 mg 1X PRN PRN RI CONSTIPATION; Start 11/25/16 at 16:00; Stop 11/26/16 at 15:59 Acetaminophen/ Hydrocodone Bitart (Lortab 7.5/325) 1 tab PRN Q4HRS PRN PO PAIN ; Start 11/24/16 at 13:30 Morphine Sulfate 4 mg PRN Q2HR PRN IV SEVERE PAIN; Start 11/24/16 at 13:30 Acetaminophen/ Hydrocodone Bitart (Lortab 7.5/325) 2 tab PRN Q4HRS PRN PO PAIN Last administered on 11/26/16 08:12; Start 11/24/16 at 13:30 Dextrose 12.5 gm 12.5 gm PRN Q15MIN PRN IV SEE COMMENTS; Start 11/24/16 at 13: 30 Cefazolin Sodium/ Dextrose (Ancef 2gm Premix) 50 ml @ 100 mls/hr Q6H IV Last administered on 11/25/16 04:28; Start 11/24/16 at 16:30; Stop 11/25/16 at 04:59 ; Status DC Influenza Virus Vaccine Quadrival (Fluarix Quad 2162-8375 Syringe) 0.5 ml ONCE ONCE VAX IM ; Start 11/24/16 at 19:30; Stop 11/24/16 at 19:31; Status DC Enoxaparin Sodium (Lovenox 40mg Syringe) 40 mg Q24H SQ Last administered on 20:46; Start 11/25/16 at 17:00 Polyethylene Glycol (miraLAX PACKET) 17 gm DAILY PO Last administered on 08:12; Start 11/26/16 at 09:00 Vitals/I & O Vital Sign - Last 24 Hours 11/25/16 11/25/16 11/25/16 11/25/16 09:20 11:00 13:27 15:00 Temp 97.5 97.9 97.5 97.9 Pulse 87 88 Resp 18 18 18 18 B/P 114/62 106/67 Pulse Ox 98 98 O2 Delivery Room Air Room Air Room Air Room Air 11/25/16 11/25/16 11/25/16 11/25/16 19:00 20:00 20:47 23:00 Temp 98.5 98.6 98.5 98.6 Pulse 93 88 Resp 20 16 20 B/P 144/77 109/56 Pulse Ox 99 99 98 O2 Delivery Room Air Room Air Room Air Room Air 11/26/16 11/26/16 11/26/16 11/26/16 00:17 03:00 03:50 04:56 Temp 98.5 98.5 Pulse 79 Resp 16 20 16 16 B/P 110/57 Pulse Ox 99 98 99 99 O2 Delivery Room Air Room Air Room Air Room Air O2 Flow Rate 2.0 11/26/16 11/26/16 07:00 08:12 Temp 96.9 96.9 Pulse 85 Resp 18 18 B/P 109/66 Pulse Ox 98 O2 Delivery Room Air Room Air Intake and Output 11/25/16 11/25/16 11/26/16 15:00 23:00 07:00 Intake Total 120 ml 120 ml Balance 120 ml 120 ml BELLE TURNER MD Nov 26, 2016 09:01
[2016-11-26] MEDS: ENOXAPARIN 40 MG/0.4 ML DISP.SYRIN. SQ SCH (16:09)
--- NOTE | 2016-11-26 18:23 | PDOC ---
PROGRESS NOTES Subjective Subjective Expected postoperative pain, no other complaints Objective Vital Signs Vital Signs Date Time Temp Pulse Resp B/P Pulse Ox O2 Delivery O2 Flow Rate FiO2 11/26/16 17:18 98.4 84 16 110/59 98.4 11/26/16 17:13 Room Air 11/26/16 14:45 97 11/26/16 00:17 2.0 Physical Exam Dressing dry. Foot is neurovascularly intact. No sign of infection or compartment syndrome. No evidence of DVT. Labs Laboratory Tests Test 11/25/16 05:55 11/25/16 13:55 11/26/16 05:51 White Blood Count 13.9x10^3/uL (4.0-11.0) 12.6x10^3/uL (4.0-11.0) 9.5x10^3/uL (4.0-11.0) Red Blood Count 2.91x10^6/uL (4.30-5.70) 2.59x10^6/uL (4.30-5.70) 2.27x10^6/uL (4.30-5.70) Hemoglobin 8.8g/dL (13.0-17.5) 7.8g/dL (13.0-17.5) 6.9g/dL (13.0-17.5) Hematocrit 26.4% (39.0-53.0) 23.5% (39.0-53.0) 20.6% (39.0-53.0) Mean Corpuscular Volume 91fL (79-100) 91fL (79-100) 91fL (79-100) Mean Corpuscular Hemoglobin 30pg (25-35) 30pg (25-35) 30pg (25-35) Mean Corpuscular Hemoglobin Concent 33g/dL (31-37) 33g/dL (31-37) 34g/dL (31-37) Red Cell Distribution Width 12.7% (11.5-14.5) 12.8% (11.5-14.5) 12.7% (11.5-14.5) Platelet Count 123x10^3/uL (140-400) 108x10^3/uL (140-400) 96x10^3/uL (140-400) Neutrophils (%) (Auto) 80% (31-73) 70% (31-73) 64% (31-73) Lymphocytes (%) (Auto) 11% (24-48) 18% (24-48) 24% (24-48) Monocytes (%) (Auto) 9% (0-9) 10% (0-9) 10% (0-9) Eosinophils (%) (Auto) 0% (0-3) 1% (0-3) 2% (0-3) Basophils (%) (Auto) 0% (0-3) 0% (0-3) 0% (0-3) Neutrophils # (Auto) 11.2x10^3uL (1.8-7.7) 8.8x10^3uL (1.8-7.7) 6.0x10^3uL (1.8-7.7) Lymphocytes # (Auto) 1.5x10^3/uL (1.0-4.8) 2.3x10^3/uL (1.0-4.8) 2.3x10^3/uL (1.0-4.8) Monocytes # (Auto) 1.2x10^3/uL (0.0-1.1) 1.3x10^3/uL (0.0-1.1) 0.9x10^3/uL (0.0-1.1) Eosinophils # (Auto) 0.0x10^3/uL (0.0-0.7) 0.1x10^3/uL (0.0-0.7) 0.2x10^3/uL (0.0-0.7) Basophils # (Auto) 0.0x10^3/uL (0.0-0.2) 0.0x10^3/uL (0.0-0.2) 0.0x10^3/uL (0.0-0.2) Sodium Level 141mmol/L (136-145) 139mmol/L (136-145) 142mmol/L (136-145) Potassium Level 4.4mmol/L (3.5-5.1) 4.0mmol/L (3.5-5.1) 4.1mmol/L (3.5-5.1) Chloride Level 107mmol/L (98-107) 104mmol/L (98-107) 107mmol/L (98-107) Carbon Dioxide Level 26mmol/L (21-32) 29mmol/L (21-32) 29mmol/L (21-32) Anion Gap 8 (6-14) 6 (6-14) 6 (6-14) Blood Urea Nitrogen 23mg/dL (8-26) 23mg/dL (8-26) 17mg/dL (8-26) Creatinine 1.1mg/dL (0.7-1.3) 1.0mg/dL (0.7-1.3) 0.9mg/dL (0.7-1.3) Estimated GFR (Cockcroft-Gault) 70.9 79.1 89.3 Glucose Level 133mg/dL (70-99) 129mg/dL (70-99) 101mg/dL (70-99) Calcium Level 8.1mg/dL (8.5-10.1) 7.8mg/dL (8.5-10.1) 8.1mg/dL (8.5-10.1) Laboratory Tests Test 11/26/16 05:51 White Blood Count 9.5x10^3/uL (4.0-11.0) Red Blood Count 2.27x10^6/uL (4.30-5.70) Hemoglobin 6.9g/dL (13.0-17.5) Hematocrit 20.6% (39.0-53.0) Mean Corpuscular Volume 91fL (79-100) Mean Corpuscular Hemoglobin 30pg (25-35) Mean Corpuscular Hemoglobin Concent 34g/dL (31-37) Red Cell Distribution Width 12.7% (11.5-14.5) Platelet Count 96x10^3/uL (140-400) Neutrophils (%) (Auto) 64% (31-73) Lymphocytes (%) (Auto) 24% (24-48) Monocytes (%) (Auto) 10% (0-9) Eosinophils (%) (Auto) 2% (0-3) Basophils (%) (Auto) 0% (0-3) Neutrophils # (Auto) 6.0x10^3uL (1.8-7.7) Lymphocytes # (Auto) 2.3x10^3/uL (1.0-4.8) Monocytes # (Auto) 0.9x10^3/uL (0.0-1.1) Eosinophils # (Auto) 0.2x10^3/uL (0.0-0.7) Basophils # (Auto) 0.0x10^3/uL (0.0-0.2) Sodium Level 142mmol/L (136-145) Potassium Level 4.1mmol/L (3.5-5.1) Chloride Level 107mmol/L (98-107) Carbon Dioxide Level 29mmol/L (21-32) Anion Gap 6 (6-14) Blood Urea Nitrogen 17mg/dL (8-26) Creatinine 0.9mg/dL (0.7-1.3) Estimated GFR (Cockcroft-Gault) 89.3 Glucose Level 101mg/dL (70-99) Calcium Level 8.1mg/dL (8.5-10.1) Assessment Assessment POD #2 after IM nail tibia fracture Problems: Plan Plan of Care Continue plan of care. DVT prophylaxis. Physical therapy. Office follow up in 10 -14 days. HILARIO WILKERSON MD Nov 26, 2016 18:23
[2016-11-27] MEDS: HYDROCODONE/APAP 7.5/325MG TABLET. PO PRN ×6 (00:08→21:32)
[2016-11-27 03:00] VITALS: BP 108/61
[2016-11-27 06:48] LABS: BASO % 0 % (0-3); EOS % 2 % (0-3); HEMATOCRIT 22.9 % (39.0-53.0); HEMOGLOBIN 7.7 g/dL (13.0-17.5); LYMPH # 1.1 x10^3/uL (1.0-4.8); LYMPH % 12 % (24-48); MEAN CORPUSCULAR HEMOGLOBIN 31 pg (25-35); MEAN CORPUSCULAR HGB CONC 34 g/dL (31-37); MEAN CORPUSCULAR VOLUME 91 fL (79-100); MONO % 5 % (0-9); NEUT % 81 % (31-73); PLATELET COUNT 96 x10^3/uL (140-400); RED BLOOD COUNT 2.53 x10^6/uL (4.30-5.70); RED CELL DISTRIBUTION WIDTH 12.7 % (11.5-14.5); WHITE BLOOD COUNT 9.6 x10^3/uL (4.0-11.0)
[2016-11-27 07:00] VITALS: BP 113/77
[2016-11-27 07:05] LABS: CREATININE 0.8 mg/dL (0.7-1.3); GFR 102.3; POTASSIUM 4.2 mmol/L (3.5-5.1)
[2016-11-27] MEDS: SENNOSIDES/DOCUSATE 8.6/50MG TABLET. PO SCH (08:37)
[2016-11-27] MEDS: POLYETHYLENE GLYCOL 3350 17 GM PACKET. PO SCH (08:37)
[2016-11-27] MEDS: ASPIRIN 325 MG TABLET PO SCH (08:37)
[2016-11-27] MEDS: CHOLECALCIFEROL (VITAMIN D3) 1,000 UNIT TABLET PO SCH (08:41)
[2016-11-27] MEDS: MORPHINE SULFATE 4 MG/ML DISP.SYRIN. IV PRN ×2 (09:55→14:20)
[2016-11-27 11:00] VITALS: BP 119/69
[2016-11-27] MEDS ORDERED: HYDR-2762 PO (14:34)
--- NOTE | 2016-11-27 14:34 | PDOC3 ---
Discharge Summary IPC Date of Admission: Nov 24, 2016 Discharge Date: Nov 27, 2016 Admitting Diagnosis 1. L tibia fx: s/p ORIF on 11-[address] Trujillo 2. B LE puncture wounds: Problems: Final Diagnosis Problems Medical Problems: (1) Displaced segmental fracture of shaft of left tibia, initial encounter for open fracture type I or II Status: Acute (2) Open fracture of left tibia Status: Acute CONSULTS rojas Procedures ORIF 11/24 Brief Hospital Course Mr. Gonzalez is a 51 old M, came for traumatic tib fx, got ORIF on 11/24, dc home if ok with ortho. General: Alert, Oriented X3, Cooperative, mild distress Heart: Regular rate, Normal S1, Normal S2, No murmurs Abdomen: Normal bowel sounds, Soft, No tenderness, No hepatosplenomegaly Extremities: Other (L leg in gauze/JAYASHREE wrap, wound vac on knee, turned off) Problems: Disposition HH CONDITION AT DISCHARGE: Improved Diet regular Scheduled Aspirin (Aspirin) 325 MG PO DAILYWBKFT Cholecalciferol (Vitamin D3) (Vitamin D) 1,000 UNIT PO DAILY Scheduled PRN Hydrocodone Bit/Acetaminophen (Hydrocodone-Apap 7.5-325 ) 1-2 TAB PO PRN Q4HRS PRN PRN PAIN Sennosides/Docusate Sodium (Senna-Time S Tablet) 1 TAB PO PRN DAILY PRN PRN CONSTIPATION Follow Up dr. Trujillo in 2 weeks SUKUMAR LUCAS MD Nov 27, 2016 14:34
[2016-11-27] MEDS ORDERED: SENN-22 PO (14:36)
[2016-11-27] MEDS ORDERED: ASPI325T4 PO (14:36)
[2016-11-27] MEDS ORDERED: CHOL10002 PO (14:36)
[2016-11-27 15:00] VITALS: BP 113/62
[2016-11-27] MEDS: ENOXAPARIN 40 MG/0.4 ML DISP.SYRIN. SQ SCH (16:27)
[2016-11-27 19:00] VITALS: BP 126/78
[2016-11-27 23:00] VITALS: BP 109/67
[2016-11-28 03:05] VITALS: BP 128/68
[2016-11-28] MEDS: HYDROCODONE/APAP 7.5/325MG TABLET. PO PRN ×3 (03:46→23:49)
[2016-11-28 06:50] LABS: BASO % 0 % (0-3); EOS % 4 % (0-3); HEMATOCRIT 22.9 % (39.0-53.0); HEMOGLOBIN 7.7 g/dL (13.0-17.5); LYMPH # 1.1 x10^3/uL (1.0-4.8); LYMPH % 13 % (24-48); MEAN CORPUSCULAR HEMOGLOBIN 31 pg (25-35); MEAN CORPUSCULAR HGB CONC 34 g/dL (31-37); MEAN CORPUSCULAR VOLUME 92 fL (79-100); MONO % 8 % (0-9); NEUT % 74 % (31-73); PLATELET COUNT 122 x10^3/uL (140-400); RED CELL DISTRIBUTION WIDTH 12.7 % (11.5-14.5); WHITE BLOOD COUNT 8.7 x10^3/uL (4.0-11.0)
[2016-11-28 07:00] VITALS: BP 108/64
[2016-11-28 07:02] LABS: CALCIUM 8.4 mg/dL (8.5-10.1); CREATININE 0.8 mg/dL (0.7-1.3); GFR 102.3; POTASSIUM 4.4 mmol/L (3.5-5.1)
[2016-11-28] MEDS: SENNOSIDES/DOCUSATE 8.6/50MG TABLET. PO SCH (09:00)
[2016-11-28] MEDS: POLYETHYLENE GLYCOL 3350 17 GM PACKET. PO SCH (09:00)
[2016-11-28] MEDS: CHOLECALCIFEROL (VITAMIN D3) 1,000 UNIT TABLET PO SCH (09:08)
[2016-11-28] MEDS: ASPIRIN 325 MG TABLET PO SCH (09:08)
[2016-11-28 11:00] VITALS: BP 120/63
[2016-11-28] MEDS ORDERED: OXYCODONE/APAP 5/325 TABLET. PO PRN (11:15)
--- NOTE | 2016-11-28 11:37 | PDOC ---
PROGRESS NOTES Subjective Subjective No complaints. Feeling well. Planning to go home soon. Objective Vital Signs Vital Signs Date Time Temp Pulse Resp B/P Pulse Ox O2 Delivery O2 Flow Rate FiO2 11/28/16 11:13 Room Air 11/28/16 11:00 99.4 95 18 120/63 99 99.4 11/27/16 04:47 2.0 Physical Exam Dressing shows no drainage. The calf is soft and nontender. He has good plantar flexion and dorsiflexion of the ankle and toes. Alignment is normal. Labs Laboratory Tests Test 11/27/16 06:20 11/28/16 05:35 White Blood Count 9.6x10^3/uL (4.0-11.0) 8.7x10^3/uL (4.0-11.0) Red Blood Count 2.53x10^6/uL (4.30-5.70) 2.50x10^6/uL (4.30-5.70) Hemoglobin 7.7g/dL (13.0-17.5) 7.7g/dL (13.0-17.5) Hematocrit 22.9% (39.0-53.0) 22.9% (39.0-53.0) Mean Corpuscular Volume 91fL (79-100) 92fL (79-100) Mean Corpuscular Hemoglobin 31pg (25-35) 31pg (25-35) Mean Corpuscular Hemoglobin Concent 34g/dL (31-37) 34g/dL (31-37) Red Cell Distribution Width 12.7% (11.5-14.5) 12.7% (11.5-14.5) Platelet Count 96x10^3/uL (140-400) 122x10^3/uL (140-400) Neutrophils (%) (Auto) 81% (31-73) 74% (31-73) Lymphocytes (%) (Auto) 12% (24-48) 13% (24-48) Monocytes (%) (Auto) 5% (0-9) 8% (0-9) Eosinophils (%) (Auto) 2% (0-3) 4% (0-3) Basophils (%) (Auto) 0% (0-3) 0% (0-3) Neutrophils # (Auto) 7.7x10^3uL (1.8-7.7) 6.4x10^3uL (1.8-7.7) Lymphocytes # (Auto) 1.1x10^3/uL (1.0-4.8) 1.1x10^3/uL (1.0-4.8) Monocytes # (Auto) 0.5x10^3/uL (0.0-1.1) 0.7x10^3/uL (0.0-1.1) Eosinophils # (Auto) 0.2x10^3/uL (0.0-0.7) 0.4x10^3/uL (0.0-0.7) Basophils # (Auto) 0.0x10^3/uL (0.0-0.2) 0.0x10^3/uL (0.0-0.2) Sodium Level 141mmol/L (136-145) 140mmol/L (136-145) Potassium Level 4.2mmol/L (3.5-5.1) 4.4mmol/L (3.5-5.1) Chloride Level 106mmol/L (98-107) 103mmol/L (98-107) Carbon Dioxide Level 27mmol/L (21-32) 29mmol/L (21-32) Anion Gap 8 (6-14) 8 (6-14) Blood Urea Nitrogen 14mg/dL (8-26) 14mg/dL (8-26) Creatinine 0.8mg/dL (0.7-1.3) 0.8mg/dL (0.7-1.3) Estimated GFR (Cockcroft-Gault) 102.3 102.3 Glucose Level 108mg/dL (70-99) 111mg/dL (70-99) Calcium Level 8.0mg/dL (8.5-10.1) 8.4mg/dL (8.5-10.1) Laboratory Tests Test 11/28/16 05:35 White Blood Count 8.7x10^3/uL (4.0-11.0) Red Blood Count 2.50x10^6/uL (4.30-5.70) Hemoglobin 7.7g/dL (13.0-17.5) Hematocrit 22.9% (39.0-53.0) Mean Corpuscular Volume 92fL (79-100) Mean Corpuscular Hemoglobin 31pg (25-35) Mean Corpuscular Hemoglobin Concent 34g/dL (31-37) Red Cell Distribution Width 12.7% (11.5-14.5) Platelet Count 122x10^3/uL (140-400) Neutrophils (%) (Auto) 74% (31-73) Lymphocytes (%) (Auto) 13% (24-48) Monocytes (%) (Auto) 8% (0-9) Eosinophils (%) (Auto) 4% (0-3) Basophils (%) (Auto) 0% (0-3) Neutrophils # (Auto) 6.4x10^3uL (1.8-7.7) Lymphocytes # (Auto) 1.1x10^3/uL (1.0-4.8) Monocytes # (Auto) 0.7x10^3/uL (0.0-1.1) Eosinophils # (Auto) 0.4x10^3/uL (0.0-0.7) Basophils # (Auto) 0.0x10^3/uL (0.0-0.2) Sodium Level 140mmol/L (136-145) Potassium Level 4.4mmol/L (3.5-5.1) Chloride Level 103mmol/L (98-107) Carbon Dioxide Level 29mmol/L (21-32) Anion Gap 8 (6-14) Blood Urea Nitrogen 14mg/dL (8-26) Creatinine 0.8mg/dL (0.7-1.3) Estimated GFR (Cockcroft-Gault) 102.3 Glucose Level 111mg/dL (70-99) Calcium Level 8.4mg/dL (8.5-10.1) Assessment Assessment Status post open fracture left tibia. Also had sutures for laceration of the right leg. Problems: Plan Plan of Care Discharge planning. Toe-touch weightbearing only. I prescribed Percocet for pain for home. He should also take calcium and vitamin D. I prefer Citracal ( calcium citrate with vitamin D) rather than calcium carbonate which: is not as easily absorbed, requires concurrent food intake, and whose absorption can be suppressed by GERD medications. HILARIO WILKERSON MD Nov 28, 2016 11:37
[2016-11-28] MEDS: OXYCODONE/APAP 5/325 TABLET. PO PRN ×2 (11:47→21:59)
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
[2016-11-28 15:00] VITALS: BP 119/69
[2016-11-28] MEDS: ENOXAPARIN 40 MG/0.4 ML DISP.SYRIN. SQ SCH (16:40)
--- NOTE | 2016-11-28 17:51 | PDOC ---
PROGRESS NOTES Chief Complaint Chief Complaint Tibia fx L ASSESSMENT AND PLAN: 1. L tibia fx: s/p ORIF on 11-[address] Trujillo 2. B LE puncture wounds: healing appropriately 3. Pain control: not optimal yet. PO and IV narcotics available 4. Prophylaxis: lovenox plan dc today, HH, however, i was called by nurse now that nobody will take pt' s Insurance. dc tmr . fu with SW Vitals Vitals Vital Signs Date Time Temp Pulse Resp B/P Pulse Ox O2 Delivery O2 Flow Rate FiO2 11/28/16 15:00 98.4 91 18 119/69 97 Room Air 98.4 Physical Exam General: Alert, Oriented X3, Cooperative, mild distress Heart: Regular rate, Normal S1, Normal S2, No murmurs Abdomen: Normal bowel sounds, Soft, No tenderness, No hepatosplenomegaly Extremities: Other (L leg in gauze/JAYASHREE wrap, wound vac on knee, turned off) Labs LABS Laboratory Tests Test 11/28/16 05:35 White Blood Count 8.7x10^3/uL (4.0-11.0) Red Blood Count 2.50x10^6/uL (4.30-5.70) Hemoglobin 7.7g/dL (13.0-17.5) Hematocrit 22.9% (39.0-53.0) Mean Corpuscular Volume 92fL (79-100) Mean Corpuscular Hemoglobin 31pg (25-35) Mean Corpuscular Hemoglobin Concent 34g/dL (31-37) Red Cell Distribution Width 12.7% (11.5-14.5) Platelet Count 122x10^3/uL (140-400) Neutrophils (%) (Auto) 74% (31-73) Lymphocytes (%) (Auto) 13% (24-48) Monocytes (%) (Auto) 8% (0-9) Eosinophils (%) (Auto) 4% (0-3) Basophils (%) (Auto) 0% (0-3) Neutrophils # (Auto) 6.4x10^3uL (1.8-7.7) Lymphocytes # (Auto) 1.1x10^3/uL (1.0-4.8) Monocytes # (Auto) 0.7x10^3/uL (0.0-1.1) Eosinophils # (Auto) 0.4x10^3/uL (0.0-0.7) Basophils # (Auto) 0.0x10^3/uL (0.0-0.2) Sodium Level 140mmol/L (136-145) Potassium Level 4.4mmol/L (3.5-5.1) Chloride Level 103mmol/L (98-107) Carbon Dioxide Level 29mmol/L (21-32) Anion Gap 8 (6-14) Blood Urea Nitrogen 14mg/dL (8-26) Creatinine 0.8mg/dL (0.7-1.3) Estimated GFR (Cockcroft-Gault) 102.3 Glucose Level 111mg/dL (70-99) Calcium Level 8.4mg/dL (8.5-10.1) Assessment and Plan Assessmemt and Plan Problems Medical Problems: (1) Displaced segmental fracture of shaft of left tibia, initial encounter for open fracture type I or II Status: Acute (2) Open fracture of left tibia Status: Acute Problems: Comment Review of Relevant I have reviewed the following items payam (where applicable) has been applied. Labs Laboratory Tests Test 11/27/16 06:20 11/28/16 05:35 White Blood Count 9.6x10^3/uL (4.0-11.0) 8.7x10^3/uL (4.0-11.0) Red Blood Count 2.53x10^6/uL (4.30-5.70) 2.50x10^6/uL (4.30-5.70) Hemoglobin 7.7g/dL (13.0-17.5) 7.7g/dL (13.0-17.5) Hematocrit 22.9% (39.0-53.0) 22.9% (39.0-53.0) Mean Corpuscular Volume 91fL (79-100) 92fL (79-100) Mean Corpuscular Hemoglobin 31pg (25-35) 31pg (25-35) Mean Corpuscular Hemoglobin Concent 34g/dL (31-37) 34g/dL (31-37) Red Cell Distribution Width 12.7% (11.5-14.5) 12.7% (11.5-14.5) Platelet Count 96x10^3/uL (140-400) 122x10^3/uL (140-400) Neutrophils (%) (Auto) 81% (31-73) 74% (31-73) Lymphocytes (%) (Auto) 12% (24-48) 13% (24-48) Monocytes (%) (Auto) 5% (0-9) 8% (0-9) Eosinophils (%) (Auto) 2% (0-3) 4% (0-3) Basophils (%) (Auto) 0% (0-3) 0% (0-3) Neutrophils # (Auto) 7.7x10^3uL (1.8-7.7) 6.4x10^3uL (1.8-7.7) Lymphocytes # (Auto) 1.1x10^3/uL (1.0-4.8) 1.1x10^3/uL (1.0-4.8) Monocytes # (Auto) 0.5x10^3/uL (0.0-1.1) 0.7x10^3/uL (0.0-1.1) Eosinophils # (Auto) 0.2x10^3/uL (0.0-0.7) 0.4x10^3/uL (0.0-0.7) Basophils # (Auto) 0.0x10^3/uL (0.0-0.2) 0.0x10^3/uL (0.0-0.2) Sodium Level 141mmol/L (136-145) 140mmol/L (136-145) Potassium Level 4.2mmol/L (3.5-5.1) 4.4mmol/L (3.5-5.1) Chloride Level 106mmol/L (98-107) 103mmol/L (98-107) Carbon Dioxide Level 27mmol/L (21-32) 29mmol/L (21-32) Anion Gap 8 (6-14) 8 (6-14) Blood Urea Nitrogen 14mg/dL (8-26) 14mg/dL (8-26) Creatinine 0.8mg/dL (0.7-1.3) 0.8mg/dL (0.7-1.3) Estimated GFR (Cockcroft-Gault) 102.3 102.3 Glucose Level 108mg/dL (70-99) 111mg/dL (70-99) Calcium Level 8.0mg/dL (8.5-10.1) 8.4mg/dL (8.5-10.1) Laboratory Tests Test 11/28/16 05:35 White Blood Count 8.7x10^3/uL (4.0-11.0) Red Blood Count 2.50x10^6/uL (4.30-5.70) Hemoglobin 7.7g/dL (13.0-17.5) Hematocrit 22.9% (39.0-53.0) Mean Corpuscular Volume 92fL (79-100) Mean Corpuscular Hemoglobin 31pg (25-35) Mean Corpuscular Hemoglobin Concent 34g/dL (31-37) Red Cell Distribution Width 12.7% (11.5-14.5) Platelet Count 122x10^3/uL (140-400) Neutrophils (%) (Auto) 74% (31-73) Lymphocytes (%) (Auto) 13% (24-48) Monocytes (%) (Auto) 8% (0-9) Eosinophils (%) (Auto) 4% (0-3) Basophils (%) (Auto) 0% (0-3) Neutrophils # (Auto) 6.4x10^3uL (1.8-7.7) Lymphocytes # (Auto) 1.1x10^3/uL (1.0-4.8) Monocytes # (Auto) 0.7x10^3/uL (0.0-1.1) Eosinophils # (Auto) 0.4x10^3/uL (0.0-0.7) Basophils # (Auto) 0.0x10^3/uL (0.0-0.2) Sodium Level 140mmol/L (136-145) Potassium Level 4.4mmol/L (3.5-5.1) Chloride Level 103mmol/L (98-107) Carbon Dioxide Level 29mmol/L (21-32) Anion Gap 8 (6-14) Blood Urea Nitrogen 14mg/dL (8-26) Creatinine 0.8mg/dL (0.7-1.3) Estimated GFR (Cockcroft-Gault) 102.3 Glucose Level 111mg/dL (70-99) Calcium Level 8.4mg/dL (8.5-10.1) Medications Current Medications Morphine Sulfate 10 mg 10 mg STK-MED ONCE .ROUTE ; Start 11/24/16 at 08:33; Stop 11/24/16 at 08:34; Status DC Cefazolin Sodium (Ancef 1gm Ivpb For Omni) 50 ml @ As Directed STK-MED ONCE IV ; Start 11/24/16 at 08:45; Stop 11/24/16 at 08:46; Status DC Morphine Sulfate 10 mg STK-MED ONCE .ROUTE ; Start 11/24/16 at 08:46; Stop 11/24 at 08:47; Status DC Morphine Sulfate 4 mg PRN Q15MIN PRN IV/SQ PAIN GREATER THAN 3/10; Start at 09:00; Stop 11/24/16 at 18:57; Status DC Morphine Sulfate 10 mg 1X ONCE IV ; Start 11/24/16 at 09:00; Stop 11/24/16 at 09:37; Status DC Morphine Sulfate 10 mg 10 mg 1X ONCE IV ; Start 11/24/16 at 09:00; Stop at 09:37; Status DC Cefazolin Sodium (Ancef 1gm Ivpb For Omni) 50 ml @ 100 mls/hr 1X ONCE IV Last administered on 11/24/16t 10:23; Start 11/24/16 at 09:00; Stop 11/24/16 at 09:37; Status DC Lidocaine/Sodium Bicarbonate (Buffered Lidocaine 1%) 20 ml STK-MED ONCE IJ ; Start 11/24/16 at 09:04; Stop 11/24/16 at 09:05; Status DC Morphine Sulfate 10 mg 1X ONCE IV ; Start 11/24/16 at 09:30; Stop 11/24/16 at 09:37; Status DC Ondansetron HCl (Zofran) 4 mg PRN Q6HRS PRN IV Nausea; Start 11/24/16 at 09:45 ; Stop 11/25/16 at 09:44; Status DC Fentanyl Citrate (Fentanyl 2ml Vial) 25 mcg PRN Q5MIN PRN IV MILD PAIN; Start 11/24/16 at 09:45; Stop 11/24/16 at 18:57; Status DC Fentanyl Citrate (Fentanyl 2ml Vial) 50 mcg PRN Q5MIN PRN IV MODERATE PAIN Last administered on 11/24/16 14:49; Start 11/24/16 at 09:45; Stop 11/24/16 at 18:57; Status DC Morphine Sulfate 1 mg 1 mg PRN Q10MIN PRN IV SEVERE PAIN; Start 11/24/16 at 09: 45; Stop 11/24/16 at 18:57; Status DC Lactated Ringer's (Iv Lactated Ringers) 1,000 ml @ 30 mls/hr Q24H IV Last administered on 11/24/16 14:30; Start 11/24/16 at 09:38; Stop 11/24/16 at 21:37 ; Status DC Lidocaine HCl 2 ml 1X PRN PRN ID IV START; Start 11/24/16 at 09:45; Stop at 09:44; Status DC Hydromorphone HCl (Dilaudid) 0.5 mg PRN Q10MIN PRN IV SEV PAIN,Second choice; Start 11/24/16 at 09:45; Stop 11/25/16 at 09:44; Status DC Prochlorperazine Edisylate (Compazine) 5 mg PACU PRN PRN IV NAUSEA; Start 11/24 at 09:45; Stop 11/25/16 at 09:44; Status DC Bupivacaine HCl/ Epinephrine Bitart 50 ml 50 ml STK-MED ONCE .ROUTE Last administered on 11/24/16 10:32; Start 11/24/16 at 09:50; Stop 11/24/16 at 09:51 ; Status DC Propofol (Diprivan) 20 ml @ As Directed STK-MED ONCE IV ; Start 11/24/16 at 09: 56; Stop 11/24/16 at 09:57; Status DC Dexamethasone Sodium Phosphate (Decadron) 20 mg STK-MED ONCE .ROUTE ; Start at 09:57; Stop 11/24/16 at 09:58; Status DC Ondansetron HCl (Zofran) 4 mg STK-MED ONCE .ROUTE ; Start 11/24/16 at 09:57; Stop 11/24/16 at 09:58; Status DC Lidocaine HCl 100 mg STK-MED ONCE .ROUTE ; Start 11/24/16 at 09:57; Stop at 09:58; Status DC Desflurane (Suprane) 90 ml STK-MED ONCE IH ; Start 11/24/16 at 09:57; Stop 11/24 at 09:58; Status DC Succinylcholine Chloride (Anectine) 200 mg STK-MED ONCE .ROUTE ; Start 11/24/16 at 09:57; Stop 11/24/16 at 09:58; Status DC Midazolam HCl (Versed) 2 mg STK-MED ONCE .ROUTE ; Start 11/24/16 at 09:59; Stop 11/24/16 at 10:00; Status DC Fentanyl Citrate (Fentanyl 2ml Vial) 100 mcg STK-MED ONCE .ROUTE ; Start at 10:00; Stop 11/24/16 at 10:01; Status DC Esmolol HCl (Brevibloc) 100 mg STK-MED ONCE IV ; Start 11/24/16 at 10:58; Stop 11/24/16 at 10:59; Status DC Fentanyl Citrate (Fentanyl 2ml Vial) 100 mcg STK-MED ONCE .ROUTE ; Start at 12:18; Stop 11/24/16 at 12:19; Status DC Oxycodone HCl (Roxicodone) 5 mg PRN Q3HRS PRN PO PAIN; Start 11/24/16 at 13:30 ; Stop 11/25/16 at 16:28; Status DC Morphine Sulfate 2 mg PRN Q1HR PRN IV PAIN; Start 11/24/16 at 13:30 Fentanyl Citrate (Fentanyl 2ml Vial) 25 mcg PRN Q1HR PRN IV PAIN; Start at 13:30; Stop 11/24/16 at 18:57; Status DC Senna/Docusate Sodium (Senna Plus) 1 tab DAILY PO Last administered on t 08:37; Start 11/25/16 at 09:00 Polyethylene Glycol (miraLAX PACKET) 17 gm PRN DAILY PRN PO CONSTIPATION; Start 11/24/16 at 13:30 Vitamin D (Vitamin D3) 1,000 unit DAILY PO Last administered on 11/28/16 09:08 ; Start 11/25/16 at 09:00 Ondansetron HCl (Zofran) 4 mg PRN Q4HRS PRN IV NAUSEA/VOMITING; Start 11/24/16 at 13:30 Aspirin (Yumiko Aspirin) 325 mg DAILYWBKFT PO Last administered on 11/28/16 09: 08; Start 11/25/16 at 08:00 Magnesium Hydroxide (Milk Of Magnesia) 2,400 mg 1X PRN PRN PO CONSTIPATION; Start 11/25/16 at 06:00; Stop 11/26/16 at 05:59; Status DC Bisacodyl (Dulcolax Supp) 10 mg 1X PRN PRN ND CONSTIPATION; Start 11/25/16 at 16:00; Stop 11/26/16 at 15:59; Status DC Acetaminophen/ Hydrocodone Bitart (Lortab 7.5/325) 1 tab PRN Q4HRS PRN PO PAIN ; Start 11/24/16 at 13:30 Morphine Sulfate 4 mg PRN Q2HR PRN IV SEVERE PAIN Last administered on 14:20; Start 11/24/16 at 13:30 Acetaminophen/ Hydrocodone Bitart (Lortab 7.5/325) 2 tab PRN Q4HRS PRN PO PAIN Last administered on 11/28/16 09:09; Start 11/24/16 at 13:30 Dextrose 12.5 gm 12.5 gm PRN Q15MIN PRN IV SEE COMMENTS; Start 11/24/16 at 13: 30 Cefazolin Sodium/ Dextrose (Ancef 2gm Premix) 50 ml @ 100 mls/hr Q6H IV Last administered on 11/25/16 04:28; Start 11/24/16 at 16:30; Stop 11/25/16 at 04:59 ; Status DC Influenza Virus Vaccine Quadrival (Fluarix Quad [id number] Syringe) 0.5 ml ONCE ONCE VAX IM ; Start 11/24/16 at 19:30; Stop 11/24/16 at 19:31; Status DC Enoxaparin Sodium (Lovenox 40mg Syringe) 40 mg Q24H SQ Last administered on 16:40; Start 11/25/16 at 17:00 Polyethylene Glycol (miraLAX PACKET) 17 gm DAILY PO Last administered on 08:37; Start 11/26/16 at 09:00 Oxycodone/ Acetaminophen (Percocet 5/325) 1 tab PRN Q4HRS PRN PO PAIN; Start at 11:15 Oxycodone/ Acetaminophen (Percocet 5/325) 2 tab PRN Q4HRS PRN PO PAIN Last administered on 11/28/16t 11:47; Start 11/28/16 at 11:15 Active Scripts Active Senna-Time S Tablet (Sennosides/Docusate Sodium) 1 Each Tablet 1 Tab PO PRN DAILY PRN Vitamin D (Cholecalciferol (Vitamin D3)) 1,000 Unit Tablet 1,000 Unit PO DAILY Aspirin 325 Mg Tablet 325 Mg PO DAILYWBKFT Hydrocodone-Apap 7.5-325 (Hydrocodone Bit/Acetaminophen) 1 Each Tablet 1-2 Tab PO PRN Q4HRS PRN Vitals/I & O Vital Sign - Last 24 Hours 11/27/16 11/27/16 11/27/16 11/28/16 19:00 20:00 23:00 03:05 Temp 97.7 97.7 98.0 97.7 97.7 98.0 Pulse 96 90 85 Resp 16 16 14 B/P 126/78 109/67 128/68 Pulse Ox 98 97 98 O2 Delivery Room Air Room Air Room Air Room Air 11/28/16 11/28/16 11/28/16 11/28/16 07:00 08:10 09:09 11:00 Temp 97.7 99.4 97.7 99.4 Pulse 81 95 Resp 16 18 B/P 108/64 120/63 Pulse Ox 97 99 O2 Delivery Room Air Room Air Room Air Room Air 11/28/16 11/28/16 11/28/16 11/28/16 11:13 11:47 13:04 15:00 Temp 98.4 98.4 Pulse 91 Resp 18 B/P 119/69 Pulse Ox 97 O2 Delivery Room Air Room Air Room Air Room Air Intake and Output 11/27/16 11/27/16 11/28/16 15:00 23:00 07:00 Output Total 525 ml 1100 ml Balance -525 ml -1100 ml SUKUMAR LUCAS MD Nov 28, 2016 17:51
[2016-11-28 19:20] VITALS: BP 113/57
[2016-11-28 23:04] VITALS: BP 103/60
[2016-11-29] VITALS (10 sets, daily range): BP systolic 99–133; BP diastolic 59–74
[2016-11-29 06:10] LABS: BASO % 0 % (0-3); EOS % 4 % (0-3); LYMPH # 1.3 x10^3/uL (1.0-4.8); LYMPH % 16 % (24-48); MEAN CORPUSCULAR HEMOGLOBIN 31 pg (25-35); MEAN CORPUSCULAR HGB CONC 34 g/dL (31-37); MEAN CORPUSCULAR VOLUME 91 fL (79-100); MONO % 8 % (0-9); NEUT % 71 % (31-73); PLATELET COUNT 145 x10^3/uL (140-400); RED BLOOD COUNT 2.24 x10^6/uL (4.30-5.70); RED CELL DISTRIBUTION WIDTH 12.8 % (11.5-14.5)
[2016-11-29 06:26] LABS: CALCIUM 8.1 mg/dL (8.5-10.1); CREATININE 0.8 mg/dL (0.7-1.3); GFR 102.3; POTASSIUM 4.2 mmol/L (3.5-5.1)
[2016-11-29 06:32] LABS: HEMATOCRIT 20.4 % (39.0-53.0); HEMOGLOBIN 6.9 g/dL (13.0-17.5)
[2016-11-29] MEDS: POLYETHYLENE GLYCOL 3350 17 GM PACKET. PO SCH (09:00)
[2016-11-29] MEDS: SENNOSIDES/DOCUSATE 8.6/50MG TABLET. PO SCH (09:00)
[2016-11-29] MEDS: ASPIRIN 325 MG TABLET PO SCH (09:09)
[2016-11-29] MEDS: CHOLECALCIFEROL (VITAMIN D3) 1,000 UNIT TABLET PO SCH (09:11)
[2016-11-29] MEDS: OXYCODONE/APAP 5/325 TABLET. PO PRN (09:11)
--- NOTE | 2016-11-29 13:05 | PDOC ---
PROGRESS NOTES Chief Complaint Chief Complaint Tibia fx L ASSESSMENT AND PLAN: 1. L tibia fx: s/p ORIF on 11-[address] Trujillo 2. B LE puncture wounds: healing appropriately 3. Pain control: not optimal yet. PO and IV narcotics available 4. Prophylaxis: lovenox plan dc any day, w/ HH, however, workmans comp case, discussed with social work Vitals Vitals Vital Signs Date Time Temp Pulse Resp B/P Pulse Ox O2 Delivery O2 Flow Rate FiO2 11/29/16 12:20 97.1 80 16 110/62 97.1 11/29/16 11:00 99 Room Air Physical Exam General: Alert, Oriented X3, Cooperative, mild distress Heart: Regular rate, Normal S1, Normal S2, No murmurs Abdomen: Normal bowel sounds, Soft, No tenderness, No hepatosplenomegaly Extremities: Other (L leg in gauze/JAYASHREE wrap, wound vac on knee, turned off) Skin: No rashes Labs LABS Laboratory Tests Test 11/29/16 05:40 White Blood Count 8.0x10^3/uL (4.0-11.0) Red Blood Count 2.24x10^6/uL (4.30-5.70) Hemoglobin 6.9g/dL (13.0-17.5) Hematocrit 20.4% (39.0-53.0) Mean Corpuscular Volume 91fL (79-100) Mean Corpuscular Hemoglobin 31pg (25-35) Mean Corpuscular Hemoglobin Concent 34g/dL (31-37) Red Cell Distribution Width 12.8% (11.5-14.5) Platelet Count 145x10^3/uL (140-400) Neutrophils (%) (Auto) 71% (31-73) Lymphocytes (%) (Auto) 16% (24-48) Monocytes (%) (Auto) 8% (0-9) Eosinophils (%) (Auto) 4% (0-3) Basophils (%) (Auto) 0% (0-3) Neutrophils # (Auto) 5.7x10^3uL (1.8-7.7) Lymphocytes # (Auto) 1.3x10^3/uL (1.0-4.8) Monocytes # (Auto) 0.6x10^3/uL (0.0-1.1) Eosinophils # (Auto) 0.4x10^3/uL (0.0-0.7) Basophils # (Auto) 0.0x10^3/uL (0.0-0.2) Sodium Level 142mmol/L (136-145) Potassium Level 4.2mmol/L (3.5-5.1) Chloride Level 106mmol/L (98-107) Carbon Dioxide Level 28mmol/L (21-32) Anion Gap 8 (6-14) Blood Urea Nitrogen 14mg/dL (8-26) Creatinine 0.8mg/dL (0.7-1.3) Estimated GFR (Cockcroft-Gault) 102.3 Glucose Level 103mg/dL (70-99) Calcium Level 8.1mg/dL (8.5-10.1) Assessment and Plan Assessmemt and Plan Problems Medical Problems: (1) Displaced segmental fracture of shaft of left tibia, initial encounter for open fracture type I or II Status: Acute (2) Open fracture of left tibia Status: Acute Problems: Comment Review of Relevant I have reviewed the following items payam (where applicable) has been applied. Labs Laboratory Tests Test 11/28/16 05:35 11/29/16 05:40 White Blood Count 8.7x10^3/uL (4.0-11.0) 8.0x10^3/uL (4.0-11.0) Red Blood Count 2.50x10^6/uL (4.30-5.70) 2.24x10^6/uL (4.30-5.70) Hemoglobin 7.7g/dL (13.0-17.5) 6.9g/dL (13.0-17.5) Hematocrit 22.9% (39.0-53.0) 20.4% (39.0-53.0) Mean Corpuscular Volume 92fL (79-100) 91fL (79-100) Mean Corpuscular Hemoglobin 31pg (25-35) 31pg (25-35) Mean Corpuscular Hemoglobin Concent 34g/dL (31-37) 34g/dL (31-37) Red Cell Distribution Width 12.7% (11.5-14.5) 12.8% (11.5-14.5) Platelet Count 122x10^3/uL (140-400) 145x10^3/uL (140-400) Neutrophils (%) (Auto) 74% (31-73) 71% (31-73) Lymphocytes (%) (Auto) 13% (24-48) 16% (24-48) Monocytes (%) (Auto) 8% (0-9) 8% (0-9) Eosinophils (%) (Auto) 4% (0-3) 4% (0-3) Basophils (%) (Auto) 0% (0-3) 0% (0-3) Neutrophils # (Auto) 6.4x10^3uL (1.8-7.7) 5.7x10^3uL (1.8-7.7) Lymphocytes # (Auto) 1.1x10^3/uL (1.0-4.8) 1.3x10^3/uL (1.0-4.8) Monocytes # (Auto) 0.7x10^3/uL (0.0-1.1) 0.6x10^3/uL (0.0-1.1) Eosinophils # (Auto) 0.4x10^3/uL (0.0-0.7) 0.4x10^3/uL (0.0-0.7) Basophils # (Auto) 0.0x10^3/uL (0.0-0.2) 0.0x10^3/uL (0.0-0.2) Sodium Level 140mmol/L (136-145) 142mmol/L (136-145) Potassium Level 4.4mmol/L (3.5-5.1) 4.2mmol/L (3.5-5.1) Chloride Level 103mmol/L (98-107) 106mmol/L (98-107) Carbon Dioxide Level 29mmol/L (21-32) 28mmol/L (21-32) Anion Gap 8 (6-14) 8 (6-14) Blood Urea Nitrogen 14mg/dL (8-26) 14mg/dL (8-26) Creatinine 0.8mg/dL (0.7-1.3) 0.8mg/dL (0.7-1.3) Estimated GFR (Cockcroft-Gault) 102.3 102.3 Glucose Level 111mg/dL (70-99) 103mg/dL (70-99) Calcium Level 8.4mg/dL (8.5-10.1) 8.1mg/dL (8.5-10.1) Laboratory Tests Test 11/29/16 05:40 White Blood Count 8.0x10^3/uL (4.0-11.0) Red Blood Count 2.24x10^6/uL (4.30-5.70) Hemoglobin 6.9g/dL (13.0-17.5) Hematocrit 20.4% (39.0-53.0) Mean Corpuscular Volume 91fL (79-100) Mean Corpuscular Hemoglobin 31pg (25-35) Mean Corpuscular Hemoglobin Concent 34g/dL (31-37) Red Cell Distribution Width 12.8% (11.5-14.5) Platelet Count 145x10^3/uL (140-400) Neutrophils (%) (Auto) 71% (31-73) Lymphocytes (%) (Auto) 16% (24-48) Monocytes (%) (Auto) 8% (0-9) Eosinophils (%) (Auto) 4% (0-3) Basophils (%) (Auto) 0% (0-3) Neutrophils # (Auto) 5.7x10^3uL (1.8-7.7) Lymphocytes # (Auto) 1.3x10^3/uL (1.0-4.8) Monocytes # (Auto) 0.6x10^3/uL (0.0-1.1) Eosinophils # (Auto) 0.4x10^3/uL (0.0-0.7) Basophils # (Auto) 0.0x10^3/uL (0.0-0.2) Sodium Level 142mmol/L (136-145) Potassium Level 4.2mmol/L (3.5-5.1) Chloride Level 106mmol/L (98-107) Carbon Dioxide Level 28mmol/L (21-32) Anion Gap 8 (6-14) Blood Urea Nitrogen 14mg/dL (8-26) Creatinine 0.8mg/dL (0.7-1.3) Estimated GFR (Cockcroft-Gault) 102.3 Glucose Level 103mg/dL (70-99) Calcium Level 8.1mg/dL (8.5-10.1) Medications Current Medications Morphine Sulfate 10 mg 10 mg STK-MED ONCE .ROUTE ; Start 11/24/16 at 08:33; Stop 11/24/16 at 08:34; Status DC Cefazolin Sodium (Ancef 1gm Ivpb For Omni) 50 ml @ As Directed STK-MED ONCE IV ; Start 11/24/16 at 08:45; Stop 11/24/16 at 08:46; Status DC Morphine Sulfate 10 mg STK-MED ONCE .ROUTE ; Start 11/24/16 at 08:46; Stop 11/24 at 08:47; Status DC Morphine Sulfate 4 mg PRN Q15MIN PRN IV/SQ PAIN GREATER THAN 3/10; Start at 09:00; Stop 11/24/16 at 18:57; Status DC Morphine Sulfate 10 mg 1X ONCE IV ; Start 11/24/16 at 09:00; Stop 11/24/16 at 09:37; Status DC Morphine Sulfate 10 mg 10 mg 1X ONCE IV ; Start 11/24/16 at 09:00; Stop at 09:37; Status DC Cefazolin Sodium (Ancef 1gm Ivpb For Omni) 50 ml @ 100 mls/hr 1X ONCE IV Last administered on 11/24/16t 10:23; Start 11/24/16 at 09:00; Stop 11/24/16 at 09:37; Status DC Lidocaine/Sodium Bicarbonate (Buffered Lidocaine 1%) 20 ml STK-MED ONCE IJ ; Start 11/24/16 at 09:04; Stop 11/24/16 at 09:05; Status DC Morphine Sulfate 10 mg 1X ONCE IV ; Start 11/24/16 at 09:30; Stop 11/24/16 at 09:37; Status DC Ondansetron HCl (Zofran) 4 mg PRN Q6HRS PRN IV Nausea; Start 11/24/16 at 09:45 ; Stop 11/25/16 at 09:44; Status DC Fentanyl Citrate (Fentanyl 2ml Vial) 25 mcg PRN Q5MIN PRN IV MILD PAIN; Start 11/24/16 at 09:45; Stop 11/24/16 at 18:57; Status DC Fentanyl Citrate (Fentanyl 2ml Vial) 50 mcg PRN Q5MIN PRN IV MODERATE PAIN Last administered on 11/24/16 14:49; Start 11/24/16 at 09:45; Stop 11/24/16 at 18:57; Status DC Morphine Sulfate 1 mg 1 mg PRN Q10MIN PRN IV SEVERE PAIN; Start 11/24/16 at 09: 45; Stop 11/24/16 at 18:57; Status DC Lactated Ringer's (Iv Lactated Ringers) 1,000 ml @ 30 mls/hr Q24H IV Last administered on 11/24/16 14:30; Start 11/24/16 at 09:38; Stop 11/24/16 at 21:37 ; Status DC Lidocaine HCl 2 ml 1X PRN PRN ID IV START; Start 11/24/16 at 09:45; Stop at 09:44; Status DC Hydromorphone HCl (Dilaudid) 0.5 mg PRN Q10MIN PRN IV SEV PAIN,Second choice; Start 11/24/16 at 09:45; Stop 11/25/16 at 09:44; Status DC Prochlorperazine Edisylate (Compazine) 5 mg PACU PRN PRN IV NAUSEA; Start 11/24 at 09:45; Stop 11/25/16 at 09:44; Status DC Bupivacaine HCl/ Epinephrine Bitart 50 ml 50 ml STK-MED ONCE .ROUTE Last administered on 11/24/16 10:32; Start 11/24/16 at 09:50; Stop 11/24/16 at 09:51 ; Status DC Propofol (Diprivan) 20 ml @ As Directed STK-MED ONCE IV ; Start 11/24/16 at 09: 56; Stop 11/24/16 at 09:57; Status DC Dexamethasone Sodium Phosphate (Decadron) 20 mg STK-MED ONCE .ROUTE ; Start at 09:57; Stop 11/24/16 at 09:58; Status DC Ondansetron HCl (Zofran) 4 mg STK-MED ONCE .ROUTE ; Start 11/24/16 at 09:57; Stop 11/24/16 at 09:58; Status DC Lidocaine HCl 100 mg STK-MED ONCE .ROUTE ; Start 11/24/16 at 09:57; Stop at 09:58; Status DC Desflurane (Suprane) 90 ml STK-MED ONCE IH ; Start 11/24/16 at 09:57; Stop 11/24 at 09:58; Status DC Succinylcholine Chloride (Anectine) 200 mg STK-MED ONCE .ROUTE ; Start 11/24/16 at 09:57; Stop 11/24/16 at 09:58; Status DC Midazolam HCl (Versed) 2 mg STK-MED ONCE .ROUTE ; Start 11/24/16 at 09:59; Stop 11/24/16 at 10:00; Status DC Fentanyl Citrate (Fentanyl 2ml Vial) 100 mcg STK-MED ONCE .ROUTE ; Start at 10:00; Stop 11/24/16 at 10:01; Status DC Esmolol HCl (Brevibloc) 100 mg STK-MED ONCE IV ; Start 11/24/16 at 10:58; Stop 11/24/16 at 10:59; Status DC Fentanyl Citrate (Fentanyl 2ml Vial) 100 mcg STK-MED ONCE .ROUTE ; Start at 12:18; Stop 11/24/16 at 12:19; Status DC Oxycodone HCl (Roxicodone) 5 mg PRN Q3HRS PRN PO PAIN; Start 11/24/16 at 13:30 ; Stop 11/25/16 at 16:28; Status DC Morphine Sulfate 2 mg PRN Q1HR PRN IV PAIN; Start 11/24/16 at 13:30 Fentanyl Citrate (Fentanyl 2ml Vial) 25 mcg PRN Q1HR PRN IV PAIN; Start at 13:30; Stop 11/24/16 at 18:57; Status DC Senna/Docusate Sodium (Senna Plus) 1 tab DAILY PO Last administered on t 08:37; Start 11/25/16 at 09:00 Polyethylene Glycol (miraLAX PACKET) 17 gm PRN DAILY PRN PO CONSTIPATION; Start 11/24/16 at 13:30 Vitamin D (Vitamin D3) 1,000 unit DAILY PO Last administered on 11/29/16 09:11 ; Start 11/25/16 at 09:00 Ondansetron HCl (Zofran) 4 mg PRN Q4HRS PRN IV NAUSEA/VOMITING; Start 11/24/16 at 13:30 Aspirin (Yumiko Aspirin) 325 mg DAILYWBKFT PO Last administered on 11/29/16 09: 09; Start 11/25/16 at 08:00 Magnesium Hydroxide (Milk Of Magnesia) 2,400 mg 1X PRN PRN PO CONSTIPATION; Start 11/25/16 at 06:00; Stop 11/26/16 at 05:59; Status DC Bisacodyl (Dulcolax Supp) 10 mg 1X PRN PRN MO CONSTIPATION; Start 11/25/16 at 16:00; Stop 11/26/16 at 15:59; Status DC Acetaminophen/ Hydrocodone Bitart (Lortab 7.5/325) 1 tab PRN Q4HRS PRN PO PAIN ; Start 11/24/16 at 13:30 Morphine Sulfate 4 mg PRN Q2HR PRN IV SEVERE PAIN Last administered on 14:20; Start 11/24/16 at 13:30 Acetaminophen/ Hydrocodone Bitart (Lortab 7.5/325) 2 tab PRN Q4HRS PRN PO PAIN Last administered on 11/28/16 23:49; Start 11/24/16 at 13:30 Dextrose 12.5 gm 12.5 gm PRN Q15MIN PRN IV SEE COMMENTS; Start 11/24/16 at 13: 30 Cefazolin Sodium/ Dextrose (Ancef 2gm Premix) 50 ml @ 100 mls/hr Q6H IV Last administered on 11/25/16 04:28; Start 11/24/16 at 16:30; Stop 11/25/16 at 04:59 ; Status DC Influenza Virus Vaccine Quadrival (Fluarix Quad [id number] Syringe) 0.5 ml ONCE ONCE VAX IM ; Start 11/24/16 at 19:30; Stop 11/24/16 at 19:31; Status DC Enoxaparin Sodium (Lovenox 40mg Syringe) 40 mg Q24H SQ Last administered on 16:40; Start 11/25/16 at 17:00 Polyethylene Glycol (miraLAX PACKET) 17 gm DAILY PO Last administered on 08:37; Start 11/26/16 at 09:00 Oxycodone/ Acetaminophen (Percocet 5/325) 1 tab PRN Q4HRS PRN PO PAIN; Start at 11:15 Oxycodone/ Acetaminophen (Percocet 5/325) 2 tab PRN Q4HRS PRN PO PAIN Last administered on 11/29/16t 09:11; Start 11/28/16 at 11:15 Active Scripts Active Senna-Time S Tablet (Sennosides/Docusate Sodium) 1 Each Tablet 1 Tab PO PRN DAILY PRN Vitamin D (Cholecalciferol (Vitamin D3)) 1,000 Unit Tablet 1,000 Unit PO DAILY Aspirin 325 Mg Tablet 325 Mg PO DAILYWBKFT Hydrocodone-Apap 7.5-325 (Hydrocodone Bit/Acetaminophen) 1 Each Tablet 1-2 Tab PO PRN Q4HRS PRN Vitals/I & O Vital Sign - Last 24 Hours 11/28/16 11/28/16 11/28/16 11/28/16 15:00 19:20 20:00 21:59 Temp 98.4 98.0 98.4 98.0 Pulse 91 85 Resp 20 B/P 119/69 113/57 Pulse Ox 97 97 97 O2 Delivery Room Air Room Air Room Air Room Air 11/28/16 11/28/16 11/28/16 11/29/16 22:59 23:04 23:49 00:49 Temp 97.8 97.8 Pulse 89 Resp B/P 103/60 Pulse Ox 97 97 97 97 O2 Delivery Room Air Room Air Room Air Room Air 11/29/16 11/29/16 11/29/16 11/29/16 03:00 07:00 08:00 09:11 Temp 98.0 97.9 98.0 97.9 Pulse 79 87 Resp 18 16 B/P 99/59 117/67 Pulse Ox 97 99 O2 Delivery Room Air Room Air Room Air Room Air 11/29/16 11/29/16 11/29/16 11/29/16 11:00 12:01 12:08 12:20 Temp 97.6 97.6 97.5 97.1 97.6 97.6 97.5 97.1 Pulse 80 80 82 80 Resp 16 16 16 16 B/P 109/72 115/72 109/74 110/62 Pulse Ox 99 O2 Delivery Room Air Intake and Output 11/28/16 11/28/16 11/29/16 15:00 23:00 07:00 Intake Total 1700 ml 420 ml Output Total 350 ml Balance 1700 ml 70 ml DINA ESTRADA MD Nov 29, 2016 13:05
[2016-11-29] MEDS: ENOXAPARIN 40 MG/0.4 ML DISP.SYRIN. SQ SCH (17:00)
[2016-11-29] MEDS: HYDROCODONE/APAP 7.5/325MG TABLET. PO PRN (18:20)
[2016-11-30] MEDS: OXYCODONE/APAP 5/325 TABLET. PO PRN ×3 (00:44→14:41)
[2016-11-30 03:00] VITALS: BP 119/74
[2016-11-30 06:31] LABS: CALCIUM 8.6 mg/dL (8.5-10.1); CREATININE 0.7 mg/dL (0.7-1.3); GFR 119.4; POTASSIUM 4.1 mmol/L (3.5-5.1)
[2016-11-30 07:00] VITALS: BP 99/75
[2016-11-30] MEDS: ASPIRIN 325 MG TABLET PO SCH (08:49)
[2016-11-30] MEDS: SENNOSIDES/DOCUSATE 8.6/50MG TABLET. PO SCH (08:55)
[2016-11-30] MEDS: POLYETHYLENE GLYCOL 3350 17 GM PACKET. PO SCH (08:55)
[2016-11-30] MEDS: CHOLECALCIFEROL (VITAMIN D3) 1,000 UNIT TABLET PO SCH (08:57)
[2016-11-30] MEDS ORDERED: IRON POLYSACCHARIDE COMPLEX 150 MG CAPSULE PO SCH (10:30)
--- NOTE | 2016-11-30 10:56 | PDOC3 ---
Discharge Summary Visit Information Date of Admission: Nov 24, 2016 Date of Discharge: Nov 30, 2016 Admitting Diagnosis: leg injury at work Final Diagnosis 1. L tibia fx: s/p ORIF 2. B LE puncture wounds: healing appropriately 3. Pain control: not optimal yet. PO and IV narcotics available 4. Prophylaxis: lovenox Problems Medical Problems: (1) Displaced segmental fracture of shaft of left tibia, initial encounter for open fracture type I or II Status: Acute (2) Open fracture of left tibia Status: Acute Brief Hospital Course Allergies Allergies Coded Allergies Type Severity Reaction Last Updated Verified No Known Drug Allergies 11/24/16 No Vital Signs Vital Signs Date Time Temp Pulse Resp B/P Pulse Ox O2 Delivery O2 Flow Rate FiO2 11/30/16 07:00 97.9 69 18 99/75 98 Room Air 97.9 Lab Results Laboratory Tests Test 11/29/16 05:40 11/30/16 05:30 White Blood Count 8.0x10^3/uL (4.0-11.0) Red Blood Count 2.24x10^6/uL (4.30-5.70) Hemoglobin 6.9g/dL (13.0-17.5) Hematocrit 20.4% (39.0-53.0) Mean Corpuscular Volume 91fL (79-100) Mean Corpuscular Hemoglobin 31pg (25-35) Mean Corpuscular Hemoglobin Concent 34g/dL (31-37) Red Cell Distribution Width 12.8% (11.5-14.5) Platelet Count 145x10^3/uL (140-400) Neutrophils (%) (Auto) 71% (31-73) Lymphocytes (%) (Auto) 16% (24-48) Monocytes (%) (Auto) 8% (0-9) Eosinophils (%) (Auto) 4% (0-3) Basophils (%) (Auto) 0% (0-3) Neutrophils # (Auto) 5.7x10^3uL (1.8-7.7) Lymphocytes # (Auto) 1.3x10^3/uL (1.0-4.8) Monocytes # (Auto) 0.6x10^3/uL (0.0-1.1) Eosinophils # (Auto) 0.4x10^3/uL (0.0-0.7) Basophils # (Auto) 0.0x10^3/uL (0.0-0.2) Sodium Level 142mmol/L (136-145) 141mmol/L (136-145) Potassium Level 4.2mmol/L (3.5-5.1) 4.1mmol/L (3.5-5.1) Chloride Level 106mmol/L (98-107) 106mmol/L (98-107) Carbon Dioxide Level 28mmol/L (21-32) 28mmol/L (21-32) Anion Gap 8 (6-14) 7 (6-14) Blood Urea Nitrogen 14mg/dL (8-26) 16mg/dL (8-26) Creatinine 0.8mg/dL (0.7-1.3) 0.7mg/dL (0.7-1.3) Estimated GFR (Cockcroft-Gault) 102.3 119.4 Glucose Level 103mg/dL (70-99) 100mg/dL (70-99) Calcium Level 8.1mg/dL (8.5-10.1) 8.6mg/dL (8.5-10.1) Laboratory Tests Test 11/30/16 05:30 Sodium Level 141mmol/L (136-145) Potassium Level 4.1mmol/L (3.5-5.1) Chloride Level 106mmol/L (98-107) Carbon Dioxide Level 28mmol/L (21-32) Anion Gap 7 (6-14) Blood Urea Nitrogen 16mg/dL (8-26) Creatinine 0.7mg/dL (0.7-1.3) Estimated GFR (Cockcroft-Gault) 119.4 Glucose Level 100mg/dL (70-99) Calcium Level 8.6mg/dL (8.5-10.1) Brief Hospital Course Mr. 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 Urgently to OR by Dr. Trujillo and a crush tib-fib fracture was repaired on the left. leg pain, persists, mobility poor Discharge Information Condition at Discharge: Improved Follow Up: Weeks Disposition/Orders: D/C to Home w/ HH Scheduled Aspirin (Aspirin) 325 MG PO DAILYWBKFT Cholecalciferol (Vitamin D3) (Vitamin D) 1,000 UNIT PO DAILY Scheduled PRN Hydrocodone Bit/Acetaminophen (Hydrocodone-Apap 7.5-325 ) 1-2 TAB PO PRN Q4HRS PRN PRN PAIN Sennosides/Docusate Sodium (Senna-Time S Tablet) 1 TAB PO PRN DAILY PRN PRN CONSTIPATION Patient Instructions Patient Instructions maricarmen w/ [employer]ER[employer], workmans comp case, CBC in one week w/ HH f/u DINA Ocampo MD Nov 30, 2016 10:56
[2016-11-30 11:00] VITALS: BP 116/70
[2016-11-30] MEDS ORDERED: VITAMIN B12,B9,B6 COMPLEX 1 TABLET. PO SCH (11:00)
== END 2016-11-30 15:30 | disposition home health service (06) | DRG 493 ==
LOC: ER 08:30 → 4 NORTH 08:39
PROVIDERS: ADMIT Internal Medicine Hematology & Oncology; ATTEND Internal Medicine Hematology & Oncology
PROC: 0HQKXZZ Repair Right Lower Leg Skin, External Approach (ICD-10-PCS; 2016-11-24)
PROC: 0QSH06Z Reposition Left Tibia with Intramedullary Internal Fixation Device, Open Approach (ICD-10-PCS; principal; 2016-11-24 10:00)
PROC: 0LQP0ZZ Repair Left Lower Leg Tendon, Open Approach (ICD-10-PCS; 2016-11-24 10:00)
PROC: 30233N1 Transfusion of Nonautologous Red Blood Cells into Peripheral Vein, Percutaneous Approach (ICD-10-PCS; 2016-11-29)
DX: S82.262 Displaced segmental fracture of shaft of left tibia (principal); D62 Acute posthemorrhagic anemia; S81.811A Laceration without foreign body, right lower leg, initial encounter; F17.210 Nicotine dependence, cigarettes, uncomplicated; W24.0XXA Contact with lifting devices, not elsewhere classified, initial encounter; Y93.89 Activity, other specified; Y92.89 Other specified places as the place of occurrence of the external cause; Y99.8 Other external cause status; Z83.3 Family history of diabetes mellitus; Z79.899 Other long term (current) drug therapy
CPT/HCPCS: 29505; 36415; 73590; 76000; 80048; 80053; 81001; 82306; 85027; 85610; 85730; 86850; 86900; 86901; 86920; C1713; C1769; G0480; G0481; J0330; J0690; J1100; J1650; J2250; J2270; J2405; J2704; J3010; J3490; J7030; J7120; P9016; 97116; 97530; 97535; 99285-25

== ENCOUNTER → 2017-01-27 | Outpatient (CLI) | payer OTHER ==
[~2017-01-27] MED LIST: ASPI325T4 PO; CHOL10002 PO; HYDR-2762 PO; SENN-22 PO
== END | disposition home or self-care (01) ==
LOC: PMGWOUND 08:15
PROVIDERS: ATTEND Emergency Medicine Undersea and Hyperbaric Medicine
DX: T81.31XD Disruption of external operation (surgical) wound, not elsewhere classified, subsequent encounter (principal); F17.210 Nicotine dependence, cigarettes, uncomplicated; Y83.8 Other surgical procedures as the cause of abnormal reaction of the patient, or of later complication, without mention of misadventure at the time of the procedure
CPT/HCPCS: 99214

== ENCOUNTER → 2017-02-03 | Outpatient (CLI) | payer OTHER | END | disposition home or self-care (01) | LOC: PMGWOUND 14:10 | PROVIDERS: ATTEND Emergency Medicine Undersea and Hyperbaric Medicine | DX: T81.31XD Disruption of external operation (surgical) wound, not elsewhere classified, subsequent encounter (principal); S87 Crushing injury of lower leg; F17.210 Nicotine dependence, cigarettes, uncomplicated; Y83.8 Other surgical procedures as the cause of abnormal reaction of the patient, or of later complication, without mention of misadventure at the time of the procedure | CPT/HCPCS: 97597; 97598 ==

== ENCOUNTER → 2017-02-10 | Outpatient (CLI) | payer OTHER | END | disposition home or self-care (01) | LOC: PMGWOUND 14:24 | PROVIDERS: ATTEND Emergency Medicine Undersea and Hyperbaric Medicine | DX: T81.31XD Disruption of external operation (surgical) wound, not elsewhere classified, subsequent encounter (principal); S87.82XD Crushing injury of left lower leg, subsequent encounter; F17.210 Nicotine dependence, cigarettes, uncomplicated; X58.XXXD Exposure to other specified factors, subsequent encounter; Y83.8 Other surgical procedures as the cause of abnormal reaction of the patient, or of later complication, without mention of misadventure at the time of the procedure | CPT/HCPCS: 97597; 97598 ==

== ENCOUNTER → 2017-02-17 | Outpatient (CLI) | payer OTHER | END | disposition home or self-care (01) | LOC: PMGWOUND 13:54 | PROVIDERS: ATTEND Emergency Medicine Undersea and Hyperbaric Medicine | DX: T81.31XD Disruption of external operation (surgical) wound, not elsewhere classified, subsequent encounter (principal); F17.210 Nicotine dependence, cigarettes, uncomplicated; Y83.8 Other surgical procedures as the cause of abnormal reaction of the patient, or of later complication, without mention of misadventure at the time of the procedure | CPT/HCPCS: 97597; 97598 ==